=== PATIENT | female | born 1970 | race Caucasian/White ===

== ENCOUNTER → 2025-01-21 | Outpatient (CLI) | payer OTHER, SELFPAY ==
--- NOTE | 2025-01-21 14:29 | BI_ITS ---
EXAM: SCRN MAMM (CAD)W/CHRISTINE BILAT DATE: 01/21/2025 CLINICAL HISTORY: F, Age 54 y/o , SCREENING No family history. TECHNIQUE: SCRN MAMM (CAD)W/CHRISTINE BILAT COMPARISON: Prior exam(s) dated November 21, 2023.. FINDINGS: TISSUE DENSITY: The breasts are extremely dense, which lowers the sensitivity of mammography. Bilateral Breast Mammographic Findings: No significant masses, calcifications or other abnormalities are identified. No suspicious masses, areas of developing architectural distortion, or suspicious calcifications. There has been no significant interval change. BI/SCRN MAMM (CAD)W/CHRISTINE BILAT IMPRESSION: Stable examination. OVERALL FINAL ASSESSMENT BI-RADS 1: NEGATIVE. RECOMMENDATION: Routine annual follow-up in 1 Year A letter with findings and recommendations will be mailed to the patient. Reading Location: [id number]
--- OUTSIDE RECORDS SUMMARY | 2025-01-21 19:59 | XMS RPT_ITS | CCD ---
Author Organization [facility] Team Providers Care Historical Archeologist Name Role Phone GOSIA SWAIN Admitting Unavailable GOSIA SWAIN Attending Unavailable Assessment, Health Risk Attending Unavaila ble Assessment, Health Risk Referring Unavaila ble Luz Marina Puckett Referring Unavailable Italo, Luz Marina Primary Care Unavailable Luz Marina Puckett Attending Unavailable Problems Problem Classification Problem Date Documented Date Episodic/Chronic Other nervous system disorders (1 source) Other acute postprocedural pain; Translations: [Other acute postprocedural pain] Onset: 08-19-2018 Episodic Other screening for suspected conditions (not mental disorders or infectious disease) (1 source) Encounter for screening mammogram for malignant neoplasm of breast; Translations: [Encounter for screening mammogram for malignant neoplasm of breast] Onset: 01-19-2025 Episodic Residual codes; unclassified (1 source) Other specified postprocedural states; Translations: [Other specified postprocedural states] Onset: 08-19-2018 Sprains and strains (1 source) Other sprain of right hip, initial encounter; Translations: [Other sprain of right hip, initial encounter] Onset: 07-30-2018 Episodic Results Test Name Value Interpretation Reference Range Facil ity Mumps Antibody,IgGon 05-30- 024 MUMPS Ab, IgG 10.8 AU/mL Low Immune >10.9 [facility] Comment on above: Result Comment: A se cond sample should be collected and tested no less than 2-4 weeks. Negative <9.0 Equivocal 9.0 - 10.9 Positive >10.9 A positive result generally indicates past exposure to Mumps virus or previous vaccination. Performed By: #### L 3400.1750, L3100.3400, L509.4015 #### [facility] [address] [place], [place], [address] WC EMP Rubeola Titeron 12-2 RUBEOLA Ab, IgG 62.8 AU/mL Normal Immune >16.4 [facility] Comment on above: Result Comment: Nega tive <13.5 Equivocal 13.5 - 16.4 Positive >16.4 Presence of antibodies to Rubeola is presumptive evidence of immunity except when acute infection is suspected. Performed at: [address] [id number] Insurance Risk Surveyor: Raheel Hassan PhD, Phone: [phone] Performed By: #### L 3400.1750, L3100.3400, L509.4014 #### [facility] [address] [place], [place], [id number] Rubella IgG [employer] [employer] 1 07-30-2023 Rubella IgG Equiv Normal Nonreactive [facility] Comment on above: Result Comment: Anti body Results Interpretation of Immune Status Non Reactive Presumed Non-Immune Equivocal Equivocal Reactive Presumed Immune Performed By: #### L 3400.1750, L3100.3400, L509.4015 #### [facility] [address] [place], [place], [id number] Claim Examiner Cytology Reporton 2020 Claim Examiner Cytology Report . Pathology Reports Accession: Collected Date/Time: Received Date/Time: Pathologist: [id number] 04/18/2021 15:26 EST 04/18/2021 18:00 EST DAV REYNOLDS MD Claim Examiner Cytology Report SPECIMEN: Specimen Description: Liquid Prep w/ HPV Specimen: No Source Given Screening or Diagnostic: Screening RELEVANT HISTORY: LMP: not given SPECIMEN ADEQUACY: SATISFACTORY FOR EVALUATION ENDOCERVICAL/TRANSFOR MATIONAL ZONE COMPONENT PRESENT INTERPRETATION/RESULT S: NEGATIVE FOR INTRAEPITHELIAL LESION OR MALIGNANCY SUGGESTIONS/EDUCATION AL NOTES: THIS CASE HAS BEEN REVIEWED FOR 10% Q.C. RESCREEN HIGH RISK HPV TESTING: High Risk HPV Typing: Negative HPV Types 16, 18, 31, 33, 35, 39, 45, 51, 52, 56, 58, 59, 66 and 68 DNA were undetectable or below the pre-set threshold. The shin High-Risk HPV DNA Test is not intended for use as a screening device for Pap normal women under age 30 and is not intended to substitute for regular Pap screening. The shin High-Risk HPV DNA Test is designed to augment existing methods for the detection of cervical disease and should be used in conjunction with clinical information derived from other diagnostic and screening tests, physical examinations and full medical history in accordance with appropriate patient management procedures. NOTE: A negative result does not preclude the presence of HPV infection because results depend on adequate specimen collection, absence of inhibitors and sufficient DNA to be detected. COMMENT: This Pap Test was successfully processed and evaluated with the assistance of the [employer] ThinPrep Test Imaging System. Electronically Signed by Pathology report verified by [facility] Screened by: RUTH DW Electronically signed by DAV REYNOLDS Sign-Out Date: 05/03/2021 14:54 Performing Lab: [facility], [address] [place] [address] Disclaimer The Pap test is a screening test for cervical cancer. As evidenced by published data, it is subject to both inherent false negative and false positive results. Your patient's results should be interpreted in context with pertinent clinical history including gynecological examination. Normal [facility] ([place]) HPVon 04-22-2021 HPV Interp Normal See Interp HPVN [facility] ([place]) Comment on above: Order Comment: Order placed by AP_HPV_ORDER rule from [id number] Result Comment: High Risk HPV Typing: NEGATIVE HPV types 16, 18, 31, 33, 35, 39, 45, 51, 52, 56, 58, 59, 66 and 68 DNA were undetectable or below the pre-set threshold. The shin High-Risk HPV DNA Test is not intended for use as a screening device for Pap normal women under age 30 and is not intended to substitute for regular Pap screening. The shin High-Risk HPV DNA Test is designed to augment existing methods for the detection of cervical disease and should be used in conjunction with clinical information derived from other diagnostic and screening tests, physical examinations and full medical history in accordance with appropriate patient management procedures. NOTE: A negative result does not preclude the presence of HPV infection because results depend on adequate specimen collection, absence of inhibitors and sufficient DNA to be detected. See Interp HPVN Performed By: #### T SH, CMP, GFR, CBC, ADIFF, ANEU, LIPID #### [facility] [address] [place] [id number] HPV Source Cervix Normal [facility] ([place]) Comment on above: Order Comment: Order placed by AP_HPV_ORDER rule from [id number] Performed By: #### T SH, CMP, GFR, CBC, ADIFF, ANEU, LIPID #### [facility] [address] [place] [address] [facility] 03-21-2021 CHOL/HDL RATIO 3.8 mg/dl Normal 3.7-5.6 [facility] Comment on above: Performed By: #### L G #### [facility] [address] [place] [address] Cholesterol [Mass/Vol] 201 mg/dL High 0-200 [facility] Comment on above: Performed By: #### L G #### [facility] [address] [place] [address] Cholesterol in HDL [Mass/Vol] 54 mg/dL Normal 40-60 [facility] Comment on above: Performed By: #### L G #### [facility] [address] [place] [address] Cholesterol in LDL [Mass/Vol] 124 mg/dL Normal 0-130 [facility] Comment on above: Performed By: #### L G #### [facility] [address] [place] [address] Glucose [Mass/Vol] 86 mg/dL Normal 70-100 [facility] Comment on above: Performed By: #### L G #### [facility] [address] [place] [address] Triglyceride [Mass/Vol] 116 mg/dL Normal 0-150 [facility] Comment on above: Performed By: #### L G #### [facility] [address] [place] [address] VLDL CALCULATION 23 mg/dl Normal 5-40 [facility] Comment on above: Performed By: #### L G #### [facility] [address] [place] [address] SCREENING CHRISTINE-BILATon 03-21 SCREENING CHRISTINE-BILAT DEMETRICE ANDERSON Female [id number] Ordering physician: Lorrie Gunter LOC:MAMMO [id number] Attending physician: Lorrie Gunter 1970 [id number] DOS: 03/18/21 Acc#: [id number] Exam/Proc: SCREENING CHRISTINE-BILAT Dept: MAMMO EXAMINATION: SCREENING DIGITAL BILATERAL MAMMOGRAM WITH TOMOSYNTHESIS 03/18/2021 1:30 pm COMPARISON: April 07, 2019 mammogram HISTORY: Screening. TECHNIQUE: Screening mammography of the bilateral breasts was performed with tomosynthesis. 2D standard and 3D tomosynthesis combination imaging performed through both breasts in the MLO and CC projection. Computer aided detection was utilized in the interpretation of this exam. Current study was also evaluated with a Computer Aided Detection (CAD) system. FINDINGS: BREAST DENSITY: Scattered fibroglandular tissue No gross abnormality demonstrated IMPRESSION: Negative exam BIRADS: MAMMOGRAM BI-RADS: 1: Negative RECALL: 1 year screening RECALL TYPE: mammo LETTER SENT: Normal BI-RADS 1 and 2 Electronically signed By Gabe Durham DO 03/21/2021 1:47:40 PM EST Workstation ID : [id number] CLINICAL: Routine screening. Lapping Machine Operator: Katie DENG(Kvng)(M) letter sent: Normal BI-RADS 1 and 2 Mammogram BI-RADS: 1 Negative REPORT SIGNATURE ON FILE Electronically Signed Date/Time: 03/21/21 1347 Dictated Date/time: 03/21/21 1346 CC: Normal [facility] .GFRon 03-11-2021 GFR >60 Normal [facility] ([place]) Comment on above: Result Comment: GFR Population mean for , Non- Americans Ages 20-29 = 116 mL/min/1.73 sq.m. Ages 30-39 = 107 mL/min/1.73 sq.m. Ages 40-49 = 99 mL/min/1.73 sq.m. Ages 50-59 = 93 mL/min/1.73 sq.m. Ages 60-69 = 85 mL/min/1.73 sq.m. Ages 70+ = 75 mL/min/1.73 sq.m. Chronic Kidney Disease: Less than 60 mL/min/1.73 square meters End Stage Renal Disease: Less than 15 mL/min/1.73 square meters Performed By: #### T SH, CMP, GFR, CBC, ADIFF, ANEU, LIPID #### [address] [address] GFR Non- >60 Normal [facility] ([place]) Comment on above: Result Comment: GFR Population mean for , Non- Americans Ages 20-29 = 116 mL/min/1.73 sq.m. Ages 30-39 = 107 mL/min/1.73 sq.m. Ages 40-49 = 99 mL/min/1.73 sq.m. Ages 50-59 = 93 mL/min/1.73 sq.m. Ages 60-69 = 85 mL/min/1.73 sq.m. Ages 70+ = 75 mL/min/1.73 sq.m. Chronic Kidney Disease: Less than 60 mL/min/1.73 square meters End Stage Renal Disease: Less than 15 mL/min/1.73 square meters Performed By: #### T SH, CMP, GFR, CBC, ADIFF, ANEU, LIPID #### [address] [address] CMPon 03-11-2021 Albumin Level 3.8 G/dL Normal 3.2-4.8 [facility] ([place]) Comment on above: Performed By: #### T SH, CMP, GFR, CBC, ADIFF, ANEU, LIPID #### [address] [address] Albumin/Globulin [Mass ratio] 1.5 {ratio} Normal 0.9-1.6 [facility] ([place]) Comment on above: Performed By: #### T SH, CMP, GFR, CBC, ADIFF, ANEU, LIPID #### [address] [address] ALP [Catalytic activity/Vol] 65 U/L Normal 38-126 [facility] ([place]) Comment on above: Performed By: #### T SH, CMP, GFR, CBC, ADIFF, ANEU, LIPID #### [address] [address] ALT [Catalytic activity/Vol] 17 U/L Normal 10-49 [facility] ([place]) Comment on above: Performed By: #### T SH, CMP, GFR, CBC, ADIFF, ANEU, LIPID #### [address] [address] AST [Catalytic activity/Vol] 16 U/L Normal 8-34 [facility] ([place]) Comment on above: Performed By: #### T SH, CMP, GFR, CBC, ADIFF, ANEU, LIPID #### [address] [address] Bili Total 0.20 mg/dL Normal 0.20-1.20 [facility] ([place]) Comment on above: Result Comment: Use of this assay is not recommended for patients undergoing treatment with eltrombopag due to the potential for falsely elevated results. Performed By: #### T SH, CMP, GFR, CBC, ADIFF, ANEU, LIPID #### [address] [address] BUN/Creatinine Ratio 18.6 ratio Normal 10.0-22.0 [facility] ([place]) Comment on above: Performed By: #### T SH, CMP, GFR, CBC, ADIFF, ANEU, LIPID #### [address] [address] Calcium [Mass/Vol] 9.2 mg/dL Normal 8.7-10.4 [facility] ([place]) Comment on above: Result Comment: No te - New Reference Range in effect 19 Performed By: #### T SH, CMP, GFR, CBC, ADIFF, ANEU, LIPID #### [address] [address] Chloride [Moles/Vol] 105 mmol/L Normal 98-110 [facility] ([place]) Comment on above: Performed By: #### T SH, CMP, GFR, CBC, ADIFF, ANEU, LIPID #### [address] [address] CO2 [Moles/Vol] 29 mmol/L Normal 22-32 [facility] ([place]) Comment on above: Performed By: #### T SH, CMP, GFR, CBC, ADIFF, ANEU, LIPID #### [address] [address] Creatinine [Mass/Vol] 0.70 mg/dL Normal 0.50-1.20 [facility] ([place]) Comment on above: Performed By: #### T SH, CMP, GFR, CBC, ADIFF, ANEU, LIPID #### [place] [id number] Electrolyte Balance 6.0 mEq/L Normal 4.0-15.0 [facility] ([place]) Comment on above: Performed By: #### T SH, CMP, GFR, CBC, ADIFF, ANEU, LIPID #### [address] [address] Globulin 2.6 G/dL Normal 1.5-3.8 [facility] ([place]) Comment on above: Performed By: #### T SH, CMP, GFR, CBC, ADIFF, ANEU, LIPID #### [place] [phone] Glucose [Mass/Vol] 98 mg/dL Normal 70-110 [facility] ([place]) Comment on above: Performed By: #### T SH, CMP, GFR, CBC, ADIFF, ANEU, LIPID #### [place] [phone] Potassium [Moles/Vol] 4.1 mmol/L Normal 3.5-5.0 [facility] ([place]) Comment on above: Result Comment: Spec imen slightly hemolyzed. Performed By: #### T SH, CMP, GFR, CBC, ADIFF, ANEU, LIPID #### [address] [address] Sodium [Moles/Vol] 140 mmol/L Normal 136-145 [facility] ([place]) Comment on above: Performed By: #### T SH, CMP, GFR, CBC, ADIFF, ANEU, LIPID #### [place] [phone] Total Protein 6.4 G/dL Normal 5.7-8.2 [facility] ([place]) Comment on above: Result Comment: No te - New Reference Range in effect 19 Performed By: #### T SH, CMP, GFR, CBC, ADIFF, ANEU, LIPID #### [address] [address] Urea nitrogen [Mass/Vol] 13.0 mg/dL Normal 8.0-22.0 [facility] ([place]) Comment on above: Performed By: #### T SH, CMP, GFR, CBC, ADIFF, ANEU, LIPID #### [address] [address] Nino 03-11-2021 Ferritin [Mass/Vol] 18.7 ng/mL Normal 8.0-252.0 [facility] ([place]) Comment on above: Performed By: #### T SH, CMP, GFR, CBC, ADIFF, ANEU, LIPID #### [address] [address] LIPIDon 03-11-2021 Cholesterol [Mass/Vol] 182 mg/dL Normal 50-199 [facility] ([place]) Comment on above: Result Comment: Chol esterol Reference Interval: Less than 200 Desirable 200-239 Borderline high risk 240 and above High risk Performed By: #### T SH, CMP, GFR, CBC, ADIFF, ANEU, LIPID #### [address] [address] Cholesterol in HDL [Mass/Vol] 50 mg/dL Normal 40-59 [facility] ([place]) Comment on above: Performed By: #### T SH, CMP, GFR, CBC, ADIFF, ANEU, LIPID #### [address] [address] Cholesterol in LDL [Mass/Vol] 111 mg/dL Normal 0-129 [facility] ([place]) Comment on above: Performed By: #### T SH, CMP, GFR, CBC, ADIFF, ANEU, LIPID #### [address] [address] Triglyceride [Mass/Vol] 104 mg/dL Normal 3-149 [facility] ([place]) Comment on above: Performed By: #### T SH, CMP, GFR, CBC, ADIFF, ANEU, LIPID #### [address] [address] TSHon 03-11-2021 TSH 3.663 mIU/mL Normal 0.550-4.780 [facility] ([place]) Comment on above: Result Comment: No te - New Reference Range in effect 19 Performed By: #### T SH, CMP, GFR, CBC, ADIFF, ANEU, LIPID #### [address] [address] .Auto Diffon 03-10-2021 Basophil, Absolute 0.10 10 3/mcL Normal 0.00-0.27 [facility] ([place]) Comment on above: Performed By: #### C BC, ADIFF, ANEU, FERR, TSH, CMP, GFR, LIPID #### [place] [address] Basophils/100 WBC (Bld) 0.5 % Normal 0.0-2.5 [facility] ([place]) Comment on above: Performed By: #### C BC, ADIFF, ANEU, FERR, TSH, CMP, GFR, LIPID #### [address] [address] Eosinophil, Absolute 0.30 10 3/mcL Normal 0.00-0.65 [facility] ([place]) Comment on above: Performed By: #### C BC, ADIFF, ANEU, FERR, TSH, CMP, GFR, LIPID #### [address] [address] Eosinophils/100 WBC (Bld) 2.4 % Normal 0.0-6.0 [facility] ([place]) Comment on above: Performed By: #### C BC, ADIFF, ANEU, FERR, TSH, CMP, GFR, LIPID #### [place] [phone] Lymphocyte, Absolute 3.50 10 3/mcL Normal 0.90-4.32 [facility] ([place]) Comment on above: Performed By: #### C BC, ADIFF, ANEU, FERR, TSH, CMP, GFR, LIPID #### [address] [address] Lymphocytes/100 WBC (Bld) 32.2 % Normal 20.0-40.0 [facility] ([place]) Comment on above: Performed By: #### C BC, ADIFF, ANEU, FERR, TSH, CMP, GFR, LIPID #### [address] [address] Monocyte, Absolute 1.00 10 3/mcL Normal 0.09-1.40 [facility] ([place]) Comment on above: Performed By: #### C BC, ADIFF, ANEU, FERR, TSH, CMP, GFR, LIPID #### [address] [address] Monocytes/100 WBC (Bld) 8.8 % Normal 2.0-13.0 [facility] ([place]) Comment on above: Performed By: #### C BC, ADIFF, ANEU, FERR, TSH, CMP, GFR, LIPID #### [address] [address] Neutrophils/100 WBC (Bld) 56.1 % Normal 50.0-75.0 [facility] ([place]) Comment on above: Performed By: #### C BC, ADIFF, ANEU, FERR, TSH, CMP, GFR, LIPID #### [address] [address] .NEUABSon 03-10-2021 Neutrophil, Absolute 6.10 10 3/mcL Normal 2.25-8.10 [facility] ([place]) Comment on above: Performed By: #### C BC, ADIFF, ANEU, FERR, TSH, CMP, GFR, LIPID #### [address] [address] CBCon 03-10-2021 Erythrocyte distribution width (RBC) [Ratio] 14.2 % Normal 11.5-15.5 [facility] ([place]) Comment on above: Performed By: #### C BC, ADIFF, ANEU, FERR, TSH, CMP, GFR, LIPID #### [place] [address] Hematocrit (Bld) [Volume fraction] 38.6 % Normal 34.0-46.0 [facility] ([place]) Comment on above: Performed By: #### C BC, ADIFF, ANEU, FERR, TSH, CMP, GFR, LIPID #### [place] [phone] Hgb 12.9 G/dL Normal 12.0-16.0 [facility] ([place]) Comment on above: Performed By: #### C BC, ADIFF, ANEU, FERR, TSH, CMP, GFR, LIPID #### [place] [address] MCH (RBC) [Entitic mass] 28.8 pg Normal 27.0-33.0 [facility] ([place]) Comment on above: Performed By: #### C BC, ADIFF, ANEU, FERR, TSH, CMP, GFR, LIPID #### [place] [address] MCHC 33.4 G/dL Normal 32.0-36.0 [facility] ([place]) Comment on above: Performed By: #### C BC, ADIFF, ANEU, FERR, TSH, CMP, GFR, LIPID #### [place] [address] MCV (RBC) [Entitic vol] 86.1 fL Normal 80.0-99.0 [facility] ([place]) Comment on above: Performed By: #### C BC, ADIFF, ANEU, FERR, TSH, CMP, GFR, LIPID #### [place] [address] Platelet 278 10 3/mcL Normal 150-450 [facility] ([place]) Comment on above: Performed By: #### C BC, ADIFF, ANEU, FERR, TSH, CMP, GFR, LIPID #### [place] [address] Platelet mean volume (Bld) [Entitic vol] 10.1 fL Normal 6.6-10.5 [facility] ([place]) Comment on above: Performed By: #### C BC, ADIFF, ANEU, FERR, TSH, CMP, GFR, LIPID #### [address] [address] RBC 4.49 10 6/mcL Normal 4.10-5.30 [facility] ([place]) Comment on above: Performed By: #### C BC, ADIFF, ANEU, FERR, TSH, CMP, GFR, LIPID #### [address] [address] WBC 10.80 10 3/mcL Normal 4.50-10.80 [facility] ([place]) Comment on above: Performed By: #### C BC, ADIFF, ANEU, FERR, TSH, CMP, GFR, LIPID #### [address] [address] .Auto Diffon 08-18-2020 Basophil, Absolute 0.10 10 3/mcL Normal 0.00-0.27 [facility] ([place]) Comment on above: Performed By: #### T SH, CMP, GFR, CBC, ADIFF, ANEU, LIPID #### [place] [address] Basophils/100 WBC (Bld) 1.0 % Normal 0.0-2.5 [facility] ([place]) Comment on above: Performed By: #### T SH, CMP, GFR, CBC, ADIFF, ANEU, LIPID #### [address] [address] Eosinophil, Absolute 0.30 10 3/mcL Normal 0.00-0.65 [facility] ([place]) Comment on above: Performed By: #### T SH, CMP, GFR, CBC, ADIFF, ANEU, LIPID #### [address] [address] Eosinophils/100 WBC (Bld) 4.2 % Normal 0.0-6.0 [facility] ([place]) Comment on above: Performed By: #### T SH, CMP, GFR, CBC, ADIFF, ANEU, LIPID #### [place] [phone] Lymphocyte, Absolute 2.50 10 3/mcL Normal 0.90-4.32 [facility] ([place]) Comment on above: Performed By: #### T SH, CMP, GFR, CBC, ADIFF, ANEU, LIPID #### [address] [address] Lymphocytes/100 WBC (Bld) 34.2 % Normal 20.0-40.0 [facility] ([place]) Comment on above: Performed By: #### T SH, CMP, GFR, CBC, ADIFF, ANEU, LIPID #### [address] [address] Monocyte, Absolute 0.60 10 3/mcL Normal 0.09-1.40 [facility] ([place]) Comment on above: Performed By: #### T SH, CMP, GFR, CBC, ADIFF, ANEU, LIPID #### [address] [address] Monocytes/100 WBC (Bld) 7.6 % Normal 2.0-13.0 [facility] ([place]) Comment on above: Performed By: #### T SH, CMP, GFR, CBC, ADIFF, ANEU, LIPID #### [address] [address] Neutrophils/100 WBC (Bld) 53.0 % Normal 50.0-75.0 [facility] ([place]) Comment on above: Performed By: #### T SH, CMP, GFR, CBC, ADIFF, ANEU, LIPID #### [address] [address] .GFRon 08-18-2020 GFR >60 Normal [facility] ([place]) Comment on above: Result Comment: GFR Population mean for , Non- Americans Ages 20-29 = 116 mL/min/1.73 sq.m. Ages 30-39 = 107 mL/min/1.73 sq.m. Ages 40-49 = 99 mL/min/1.73 sq.m. Ages 50-59 = 93 mL/min/1.73 sq.m. Ages 60-69 = 85 mL/min/1.73 sq.m. Ages 70+ = 75 mL/min/1.73 sq.m. Chronic Kidney Disease: Less than 60 mL/min/1.73 square meters End Stage Renal Disease: Less than 15 mL/min/1.73 square meters Performed By: #### T SH, CMP, GFR, CBC, ADIFF, ANEU, LIPID #### [address] [address] GFR Non- >60 Normal [facility] ([place]) Comment on above: Result Comment: GFR Population mean for , Non- Americans Ages 20-29 = 116 mL/min/1.73 sq.m. Ages 30-39 = 107 mL/min/1.73 sq.m. Ages 40-49 = 99 mL/min/1.73 sq.m. Ages 50-59 = 93 mL/min/1.73 sq.m. Ages 60-69 = 85 mL/min/1.73 sq.m. Ages 70+ = 75 mL/min/1.73 sq.m. Chronic Kidney Disease: Less than 60 mL/min/1.73 square meters End Stage Renal Disease: Less than 15 mL/min/1.73 square meters Performed By: #### T SH, CMP, GFR, CBC, ADIFF, ANEU, LIPID #### [place] [id number] .NEUABSon 08-18-2020 Neutrophil, Absolute 3.80 10 3/mcL Normal 2.25-8.10 [facility] ([place]) Comment on above: Performed By: #### T SH, CMP, GFR, CBC, ADIFF, ANEU, LIPID #### [place] [phone] CBCon 08-18-2020 Erythrocyte distribution width (RBC) [Ratio] 13.7 % Normal 11.5-15.5 [facility] ([place]) Comment on above: Performed By: #### T SH, CMP, GFR, CBC, ADIFF, ANEU, LIPID #### [address] [address] Hematocrit (Bld) [Volume fraction] 41.1 % Normal 34.0-46.0 [facility] ([place]) Comment on above: Performed By: #### T SH, CMP, GFR, CBC, ADIFF, ANEU, LIPID #### [address] [address] Hgb 13.6 G/dL Normal 12.0-16.0 [facility] ([place]) Comment on above: Performed By: #### T SH, CMP, GFR, CBC, ADIFF, ANEU, LIPID #### [place] [address] MCH (RBC) [Entitic mass] 28.8 pg Normal 27.0-33.0 [facility] ([place]) Comment on above: Performed By: #### T SH, CMP, GFR, CBC, ADIFF, ANEU, LIPID #### [place] [address] MCHC 33.1 G/dL Normal 32.0-36.0 [facility] ([place]) Comment on above: Performed By: #### T SH, CMP, GFR, CBC, ADIFF, ANEU, LIPID #### [place] [address] MCV (RBC) [Entitic vol] 87.0 fL Normal 80.0-99.0 [facility] ([place]) Comment on above: Performed By: #### T SH, CMP, GFR, CBC, ADIFF, ANEU, LIPID #### [place] [address] Platelet 303 10 3/mcL Normal 150-450 [facility] ([place]) Comment on above: Performed By: #### T SH, CMP, GFR, CBC, ADIFF, ANEU, LIPID #### [place] [address] Platelet mean volume (Bld) [Entitic vol] 10.1 fL Normal 6.6-10.5 [facility] ([place]) Comment on above: Performed By: #### T SH, CMP, GFR, CBC, ADIFF, ANEU, LIPID #### [place] [address] RBC 4.72 10 6/mcL Normal 4.10-5.30 [facility] [facility] ([place]) Comment on above: Performed By: #### T SH, CMP, GFR, CBC, ADIFF, ANEU, LIPID #### [place] [address] WBC 7.20 10 3/mcL Normal 4.50-10.80 [facility] ([place]) Comment on above: Performed By: #### T SH, CMP, GFR, CBC, ADIFF, ANEU, LIPID #### [place] [id number] CMPon 08-18-2020 Albumin Level 3.8 G/dL Normal 3.2-4.8 [facility] ([place]) Comment on above: Performed By: #### T SH, CMP, GFR, CBC, ADIFF, ANEU, LIPID #### [place] [address] Albumin/Globulin [Mass ratio] 1.4 {ratio} Normal 0.9-1.6 [facility] ([place]) Comment on above: Performed By: #### T SH, CMP, GFR, CBC, ADIFF, ANEU, LIPID #### [place] [address] ALP [Catalytic activity/Vol] 56 U/L Normal 38-126 [facility] ([place]) Comment on above: Performed By: #### T SH, CMP, GFR, CBC, ADIFF, ANEU, LIPID #### [place] [address] ALT [Catalytic activity/Vol] 20 U/L Normal 10-49 [facility] ([place]) Comment on above: Performed By: #### T SH, CMP, GFR, CBC, ADIFF, ANEU, LIPID #### [place] [id number] AST [Catalytic activity/Vol] 17 U/L Normal 8-34 [facility] ([place]) Comment on above: Performed By: #### T SH, CMP, GFR, CBC, ADIFF, ANEU, LIPID #### [place] [address] Bili Total 0.40 mg/dL Normal 0.20-1.20 [facility] ([place]) Comment on above: Result Comment: Use of this assay is not recommended for patients undergoing treatment with eltrombopag due to the potential for falsely elevated results. Performed By: #### T SH, CMP, GFR, CBC, ADIFF, ANEU, LIPID #### [facility] [address] [place], [place] [address] BUN/Creatinine Ratio 17.1 ratio Normal 10.0-22.0 [facility] ([place]) Comment on above: Performed By: #### T SH, CMP, GFR, CBC, ADIFF, ANEU, LIPID #### [address] [address] Calcium [Mass/Vol] 9.4 mg/dL Normal 8.7-10.4 [facility] ([place]) Comment on above: Result Comment: No te - New Reference Range in effect 19 Performed By: #### T SH, CMP, GFR, CBC, ADIFF, ANEU, LIPID #### [address] [address] Chloride [Moles/Vol] 105 mmol/L Normal 98-110 [facility] ([place]) Comment on above: Performed By: #### T SH, CMP, GFR, CBC, ADIFF, ANEU, LIPID #### [address] [address] CO2 [Moles/Vol] 29 mmol/L Normal 22-32 [facility] ([place]) Comment on above: Performed By: #### T SH, CMP, GFR, CBC, ADIFF, ANEU, LIPID #### [address] [address] Creatinine [Mass/Vol] 0.76 mg/dL Normal 0.50-1.20 [facility] ([place]) Comment on above: Performed By: #### T SH, CMP, GFR, CBC, ADIFF, ANEU, LIPID #### [address] [address] Electrolyte Balance 5.0 mEq/L Normal 4.0-15.0 [facility] ([place]) Comment on above: Performed By: #### T SH, CMP, GFR, CBC, ADIFF, ANEU, LIPID #### [address] [address] Globulin 2.7 G/dL Normal 1.5-3.8 [facility] ([place]) Comment on above: Performed By: #### T SH, CMP, GFR, CBC, ADIFF, ANEU, LIPID #### [address] [address] Glucose [Mass/Vol] 87 mg/dL Normal 70-110 [facility] ([place]) Comment on above: Performed By: #### T SH, CMP, GFR, CBC, ADIFF, ANEU, LIPID #### [address] [address] Potassium [Moles/Vol] 4.5 mmol/L Normal 3.5-5.0 [facility] ([place]) Comment on above: Performed By: #### T SH, CMP, GFR, CBC, ADIFF, ANEU, LIPID #### [address] [address] Sodium [Moles/Vol] 139 mmol/L Normal 136-145 [facility] ([place]) Comment on above: Performed By: #### T SH, CMP, GFR, CBC, ADIFF, ANEU, LIPID #### [address] [address] Total Protein 6.5 G/dL Normal 5.7-8.2 [facility] ([place]) Comment on above: Result Comment: No te - New Reference Range in effect 19 Performed By: #### T SH, CMP, GFR, CBC, ADIFF, ANEU, LIPID #### [address] [address] Urea nitrogen [Mass/Vol] 13.0 mg/dL Normal 8.0-22.0 [facility] ([place]) Comment on above: Performed By: #### T SH, CMP, GFR, CBC, ADIFF, ANEU, LIPID #### [address] [address] LIPIDon 08-18-2020 Cholesterol [Mass/Vol] 227 mg/dL High 50-199 [facility] ([place]) Comment on above: Result Comment: Chol esterol Reference Interval: Less than 200 Desirable 200-239 Borderline high risk 240 and above High risk Performed By: #### T SH, CMP, GFR, CBC, ADIFF, ANEU, LIPID #### [address] [address] Cholesterol in HDL [Mass/Vol] 54 mg/dL Normal 40-59 [facility] ([place]) Comment on above: Performed By: #### T SH, CMP, GFR, CBC, ADIFF, ANEU, LIPID #### [address] [address] Cholesterol in LDL [Mass/Vol] 155 mg/dL High 0-129 [facility] ([place]) Comment on above: Performed By: #### T SH, CMP, GFR, CBC, ADIFF, ANEU, LIPID #### [address] [address] Triglyceride [Mass/Vol] 92 mg/dL Normal 3-149 [facility] ([place]) Comment on above: Performed By: #### T SH, CMP, GFR, CBC, ADIFF, ANEU, LIPID #### [place] [id number] TSHon 08-18-2020 TSH 1.101 mIU/mL Normal 0.550-4.780 [facility] ([place]) Comment on above: Result Comment: No te - New Reference Range in effect 19 Performed By: #### T SH, CMP, GFR, CBC, ADIFF, ANEU, LIPID #### [place] [id number] CNOVon 11-26-2018 CNOV Office Visit (SPHTB) DEMETRICE ANDERSON ([id number]) 1970 F Date Time Provider Department 11/26/18 9:15 AM GOSIA SWAIN SPHTB During your visit today, we recorded the following information about you: Gosia Swain MD 11/26/2018 11:58 AM Signed DEPARTMENT OF ORTHOPAEDICS November 26, 2018 CC: postop right hip HPI: 3 months postop right hip doing well. Has resolved her flareups. Overall improved from preoperative status. Progressing rehabilitation. No interim traumatic injury. PAIN EVALUATION No data found. Past Medical History: PAST MEDICAL HISTORY Diagnosis Date - Acetabular labrum tear 06/2018 RIGHT HIP - Hypothyroid Family History: FAMILY HISTORY Problem Relation Age of Onset - Anesthesia Problems No Family History - Blood Clots No Family History - Early No Family History Social History: Medications: acetaminophen (TYLENOL) 325 mg cap Take by mouth. levothyroxine (SYNTHROID) 112 mcg tablet Take 112 mcg by mouth daily before breakfast. liothyronine (CYTOMEL) 5 mcg tablet Take 5 mcg by mouth once daily. amitriptyline (ELAVIL) 10 mg tablet Take 10 mg by mouth daily at bedtime. Allergies: ALLERGIES No Known Allergies Physical Exam: Musculoskeletal Exam: Gait normal, Posture: erect and normal. Exam: Right Left Single Leg Trendelenburg Negative Negative Hip flexion 110 110 IR 10 30 ER 60 60 Anterior impingement negative negative Dynamic labral stress negative negative JONNA negative negative Posterior Impingement negative negative TRESA negative negative Strength Right Left Supine HF 5/5 5/5 Upright HF 5/5 5/5 Adduction 5/5 5/5 Abduction 5/5 5/5 Tenderness with Palpation: Right Left Greater Troch Positive Negative Gluteus Medius Negative Negative Piriformis Negative Negative Review of Systems: GENERAL: No weight loss, malaise or fevers MUSCULOSKELETAL: See HPI Imaging: Assessment/Plan: 3 months postop right hip doing well Plan discussed and expectations reviewed. Proceed forward with reoperative protocol. Follow-up in 3 months. All questions answered. Gosia Swain MD This note was partially generated using [employer] voice recognition system, and there may be some incorrect words, spellings, and punctuation that were not noted in checking the note before saving. Referring Provider: SHERINE BRAUN [[id number]] Allergies As of Date: 11/26/2018 (No Known Allergies) Date Reviewed: 11/26/2018 Reviewed by: Vanita Gonsalez Ma - Fully Assessed Reason for Visit: Post Op [174] Cmt: right hip surgery on 08/19/2018 Primary Visit Diagnosis:Acetabular labrum tear, right, subsequent encounter [S73.191D] Prescriptions as of 11/26/2018 Sig: ACETAMINOPHEN 325 MG CAPSULE Take by mouth. LEVOTHYROXINE 112 MCG TABLET Take 112 mcg by mouth daily b* LIOTHYRONINE 5 MCG TABLET Take 5 mcg by mouth once seema* AMITRIPTYLINE 10 MG TABLET Take 10 mg by mouth daily at * Problem List As Of Date 11/26/2018 Noted Resolved Acetabular labrum tear, right, initial encounte*INVALID FOR* Acquired hypothyroidism [E03.9] INVALID FOR* More... Hx of migraine headaches [Z86.69] INVALID FOR* More... Medications Discontinued During This Encounter methocarbamol (ROBAXIN) 500 mg tablet 21 t* 0 10/22/2018 11/26/2018 Route: ORAL Sig: Take 1 tablet by mouth three times daily. Disc: Course of therapy completed aspirin, enteric coated (ADULT LOW D* 21 t* 0 08/19/2018 11/26/2018 Class: Print RX Route: ORAL Sig: Take 1 tablet by mouth daily with breakfast for 21 days. Start the day after last dose of ketorolac Disc: Course of therapy completed ondansetron orally disintegrating (Z* 12 t* 0 08/19/2018 11/26/2018 Class: Print RX Route: ORAL Sig: Take 1 tablet by mouth every 8 hours as needed for Nausea/Vomiting. Patient not taking: Reported on 09/03/2018 Disc: Course of therapy completed acetaminophen (TYLENOL) 500 mg tablet 40 t* 0 08/19/2018 11/26/2018 Class: Print RX Si tablet every 4 to 6 hours as needed for pain Disc: Course of therapy completed topiramate (TOPAMAX) 50 mg tablet 11/26/2018 Class: Historical Med Route: ORAL Sig: Take 50 mg by mouth once daily. Disc: Course of therapy completed Disposition: Return in about 3 months (around 02/26/2019). Follow-up and Disposition History Recorded Encounter Status:Closed by GOSIA SWAIN MD on 11/26/[address] [facility] PROGRESSon 11-26-2018 PROGRESS HNO ID: [id number] Author: Gosia Swain Service: ? Author Type: Physician Type: Progress Notes Filed: 11/26/2018 11:58 AM Note Text: DEPARTMENT OF ORTHOPAEDICS November 26, 2018 CC: postop right hip HPI: 3 months postop right hip doing well. Has resolved her flareups. Overall improved from preoperative status. Progressing rehabilitation. No interim traumatic injury. PAIN EVALUATION No data found. Past Medical History: PAST MEDICAL HISTORY Diagnosis Date - Acetabular labrum tear 06/2018 RIGHT HIP - Hypothyroid Family History: FAMILY HISTORY Problem Relation Age of Onset - Anesthesia Problems No Family History - Blood Clots No Family History - Early No Family History Social History: Medications: acetaminophen (TYLENOL) 325 mg cap Take by mouth. levothyroxine (SYNTHROID) 112 mcg tablet Take 112 mcg by mouth daily before breakfast. liothyronine (CYTOMEL) 5 mcg tablet Take 5 mcg by mouth once daily. amitriptyline (ELAVIL) 10 mg tablet Take 10 mg by mouth daily at bedtime. Allergies: ALLERGIES No Known Allergies Physical Exam: Musculoskeletal Exam: Gait normal, Posture: erect and normal. Exam: Right Left Single Leg Trendelenburg Negative Negative Hip flexion 110 110 IR 10 30 ER 60 60 Anterior impingement negative negative Dynamic labral stress negative negative JONNA negative negative Posterior Impingement negative negative TRESA negative negative Strength Right Left Supine HF 5/5 5/5 Upright HF 5/5 5/5 Adduction 5/5 5/5 Abduction 5/5 5/5 Tenderness with Palpation: Right Left Greater Troch Positive Negative Gluteus Medius Negative Negative Piriformis Negative Negative Review of Systems: GENERAL: No weight loss, malaise or fevers MUSCULOSKELETAL: See HPI Imaging: Assessment/Plan: 3 months postop right hip doing well Plan discussed and expectations reviewed. Proceed forward with reoperative protocol. Follow-up in 3 months. All questions answered. Gosia Swain MD This note was partially generated using [employer] voice recognition system, and there may be some incorrect words, spellings, and punctuation that were not noted in checking the note before saving. Normal [facility] CNOVon 10-01-2018 CNOV Office Visit (SPHTB) DEMETRICE ANDERSON ([id number]) 1970 F Date Time Provider Department 10/01/18 9:20 AM CHELSEA ARORA) SPHTB During your visit today, we recorded the following information about you: Chelsea Arora PA-C 10/01/2018 9:30 AM Signed Post Op Follow Up Visit Demetrice Anderson follows up today 6 weeks s/p right hip arthroscopy Has been doing well since surgery. Reports no systemic symptoms or other concerns. PT is going well. PAIN EVALUATION 10/01/2018 Pain Level: 3 Pain Location: Hip-Right Description: Aching;Sore;Dull Duration Units: Months Frequency: Intermittent Intervention: Medication;Reposition ;Relaxation Focused Musculoskeletal exam: Incisions well healed Intact sensation distribution of the lateral femoral cutaneous nerve Trendelenburg Negative right, Negative left Right Left Hip Flex 110 degrees 110 degrees IR 30 degrees 10 degrees ER 60 degrees 60 degrees JONNA Positive motion Negative Anterior Impingement: Negative Negative Posterior Impingement: Negative Negative TRESA Negative Negative Tenderness with Palpation: Right Left Greater Troch Positive Mild Gluteus Medius Negative Negative Piriformis Negative Negative Resisted Strength out of 5 Right Left Hip ADduction 5 5 Hip ABduction 4+ 5 SLR 5 5 Isolated Iliopsoas 5 5 Impression: 6 weeks s/p right hip arthroscopy, Plan: Discussed Advance PT and activities per protocol. Precautions reinforced. Avoid walking for exercise Pool exercise as tolerated avoid - breast stroke, scissor kick, treading water JONNA and Jesus Stretch Bike and elliptical for cardio - gradual progression Follow-up: [address] Alma Arora, MS, PALenora Arora PA-C 10/01/2018 9:27 AM Addendum Avoid walking for exercise Pool exercise as tolerated - walking, gentle freestyle, deep water jog with belt. Avoid - breast stroke, scissor kick, treading water Begin JONNA/ Figure 4 stretch 10 - 30 count hold 3 reps 2-3 sets per day - can start with right heel resting next to or below left knee and progress to right heel resting above leftknee per tolerance Jesus stretch off edge or end of bed - 30 count hold 3 reps 2-3 sets per day Left knee to chest Begin Bike and elliptical for cardio - gradual progression - per PT guidance Referring Provider: SHERINE BARUN [[id number]] Allergies As of Date: 10/01/2018 (No Known Allergies) Date Reviewed: 10/01/2018 Reviewed by: Mike Jennings Ma - Fully Assessed Reason for Visit: Post-Op Visit [1236] Cmt: Right hip post op visit. Pain is a 3 out of ten. Intermittently. Primary Visit Diagnosis:Acetabular labrum tear, right, initial encounter [S73.191A] Prescriptions as of 10/01/2018 Sig: ACETAMINOPHEN 500 MG TABLET 1 tablet every 4 to 6 hours a* ACETAMINOPHEN 325 MG CAPSULE Take by mouth. LEVOTHYROXINE 112 MCG TABLET Take 112 mcg by mouth daily b* LIOTHYRONINE 5 MCG TABLET Take 5 mcg by mouth once seema* TOPIRAMATE 50 MG TABLET Take 50 mg by mouth once seema* AMITRIPTYLINE 10 MG TABLET Take 10 mg by mouth daily at * ASPIRIN 81 MG TABLET,DELAYED * Take 1 tablet by mouth daily * ONDANSETRON 4 MG DISINTEGRATI* Take 1 tablet by mouth every * Patient not taking: Reported on 09/03/2018 METHOCARBAMOL 500 MG TABLET Take 1 tablet by mouth four t* Patient not taking: Reported on 09/03/2018 Problem List As Of Date 10/01/2018 Noted Resolved Acetabular labrum tear, right, initial encounte*INVALID FOR* Acquired hypothyroidism [E03.9] INVALID FOR* More... Hx of migraine headaches [Z86.69] INVALID FOR* More... Other instructions from your clinician: Avoid walking for exercise Pool exercise as tolerated - walking, gentle freestyle, deep water jog with belt. Avoid - breast stroke, scissor kick, treading water Begin JONNA/ Figure 4 stretch 10 - 30 count hold 3 reps 2-3 sets per day - can start with right heel resting next to or below left knee and progress to right heel resting above leftknee per tolerance Jesus stretch off edge or end of bed - 30 count hold 3 reps 2-3 sets per day Left knee to chest Begin Bike and elliptical for cardio - gradual progression - per PT guidance Encounter Status:Closed by CHELSEA ARORA PA-C on 10/01/18 [facility] PROGRESSon 10-01-2018 PROGRESS HNO ID: [id number] Author: Chelsea Arora (Pa) Service: ? Author Type: Physician Window Installer Type: Progress Notes Filed: 10/01/2018 9:30 AM Note Text: Post Op Follow Up Visit Demetrice Anderson follows up today 6 weeks s/p right hip arthroscopy Has been doing well since surgery. Reports no systemic symptoms or other concerns. PT is going well. PAIN EVALUATION 10/01/2018 Pain Level: 3 Pain Location: Hip-Right Description: Aching;Sore;Dull Duration Units: Months Frequency: Intermittent Intervention: Medication;Reposition ;Relaxation Focused Musculoskeletal exam: Incisions well healed Intact sensation distribution of the lateral femoral cutaneous nerve Trendelenburg Negative right, Negative left Right Left Hip Flex 110 degrees 110 degrees IR 30 degrees 10 degrees ER 60 degrees 60 degrees JONNA Positive motion Negative Anterior Impingement: Negative Negative Posterior Impingement: Negative Negative TRESA Negative Negative Tenderness with Palpation: Right Left Greater Troch Positive Mild Gluteus Medius Negative Negative Piriformis Negative Negative Resisted Strength out of 5 Right Left Hip ADduction 5 5 Hip ABduction 4+ 5 SLR 5 5 Isolated Iliopsoas 5 5 Impression: 6 weeks s/p right hip arthroscopy, Plan: Discussed Advance PT and activities per protocol. Precautions reinforced. Avoid walking for exercise Pool exercise as tolerated avoid - breast stroke, scissor kick, treading water JONNA and Jesus Stretch Bike and elliptical for cardio - gradual progression Follow-up: [address] Alma Arora, MS, AMOR [facility] CNOVon 09-03-2018 CNOV Office Visit (SPHTB) DEMETRICE ANDERSON ([id number]) 1970 F Date Time Provider Department 09/03/18 12:00 PM CHELSEA ARORA) SPHTB During your visit today, we recorded the following information about you: Chelsea Arora PA-C 09/03/2018 12:36 PM Signed Post Op Follow Up Visit Demetrice Anderson returns approximately 2 weeks s/p 1. Right hip arthroscopy. 2. Acetabuloplasty, [address]. 3. Labral repair, [address]. 4. Femoroplasty [address]. DOS: 08/19/18 Has been doing well since surgery. Denies systemic symptoms or other concerns. Denies calf pain. PAIN EVALUATION 09/03/2018 Pain Level: 3 Pain Location: Hip-Right Description: Aching;Sore;Dull Duration Units: Weeks Frequency: Intermittent Intervention: Reposition;Relaxation Medication Naproxen Weight bearing: partial using 2 crutches Hip Brace: discontinued yesterday Physical therapy 2-3 times per week Examination: Sutures removed without incident. Incisions healing well with no erythema, drainage, induration. There are no signs of infection. Wounds re-enforced with steri strips. Intact sensation in the distribution of the lateral femoral cutaneous nerve no discomfort with log roll Hip flexion to 90 degrees without pain External rotation at 90? to 40 degrees without pain Calves soft, non tender, no palpable cords 5/5 strength with resisted DF/EHL/PF bilaterally Impression: Approximately 2 weeks s/p right hip scope. No evidence of infection or DVT Plan: Discussed Intra operative and post operative course and expectations discussed. Arthroscopy pictures reviewed. Wound Care You can get your incisions wet in the shower, by allowing the water to run over them. Avoid scrubbing incisions. Do not soak or submerge your leg in a hot tub, bath tub or pool until you are at least 3 weeks post op and incisions well healed. Do not apply lotions or ointments to your incisions until you are 3 weeks post op and incisions are well healed. Medications: Finish Naproxen prescription. Then NSAID as needed for pain Pain medication - Over the Counter Tylenol (Acetaminophen) 325 mg or 500 mg - 1 up to 2 tablets 3-4 times per day Make sure to keep a track of how much tylenol you are taking Maximum dose of tylenol/acetaminophen from all sources in 24 hours is 4000 mg. Activities: Physical therapy - 1-2 times a week Continue to lay on your stomach for 1 to 2 hours per day to stretch the front of your hip. May do this in 5-10 minute increments. Start to flex your hip past 90 degrees at 2 weeks post op ? At 3 weeks post op no motion restrictions Avoid walking for exercise Upright stationary bike for motion only over the next 3-4 weeks Pool at 3 weeks post op IF incisions are completely healed: avoid breast stroke, treading water, scissor kick/ motion. Ok to begin deep water jog at 5-6 weeks post op Weight Bearing: Continue progression - use 2 crutches for at 2-3 days then 1 crutch for at least 3 day - full weight bearing as tolerated day 3. Then crutch as needed. Avoid limping 25 % body weight using 2 crutches for 1-2 days, then 50 % body weight using 2 crutches for 1-2 days, then 75% body weight using 1 crutch for 1-2 days 100 % body weight with 1 crutch x 1day If you are not more sore the next day you may progress to the next level. Otherwise remain at current level for 1-2 more days. Continue crutches until you have good leg control Return to work 09/10/18 with restrictions, letter provided Follow-up: 4 weeks Chelsea Arora MS, AMOR Arora PA-C 09/03/2018 12:32 PM Signed Wound Care You can get your incisions wet in the shower, by allowing the water to run over them. Avoid scrubbing incisions. Do not soak or submerge your leg in a hot tub, bath tub or pool until you are at least 3 weeks post op and incisions well healed. Do not apply lotions or ointments to your incisions until you are 3 weeks post op and incisions are well healed. Medications: Finish Naproxen prescription. Then NSAID as needed for pain Pain medication - Over the Counter Tylenol (Acetaminophen) 325 mg or 500 mg - 1 up to 2 tablets 3-4 times per day Make sure to keep a track of how much tylenol you are taking Maximum dose of tylenol/acetaminophen from all sources in 24 hours is 4000 mg. Activities: Physical therapy - once a week Continue to lay on your stomach for 1 to 2 hours per day to stretch the front of your hip. May do this in 5-10 minute increments. Start to flex your hip past 90 degrees at 2 weeks post op ? At 3 weeks post op no motion restrictions Avoid walking for exercise Upright stationary bike for motion only over the next 3-4 weeks Pool at 3 weeks post op IF incisions are completely healed: avoid breast stroke, treading water, scissor kick/ motion. Ok to begin deep water jog at 5-6 weeks post op Weight Bearing: Continue progression - use 2 crutches for at 2-3 days then 1 crutch for at least 3 day - full weight bearing as tolerated day 3. Then crutch as needed. Avoid limping 25 % body weight using 2 crutches for 1-2 days, then 50 % body weight using 2 crutches for 1-2 days, then 75% body weight using 1 crutch for 1-2 days 100 % body weight with 1 crutch x 1day If you are not more sore the next day you may progress to the next level. Otherwise remain at current level for 1-2 more days. Continue crutches until you have good leg control Follow-up: 4 weeks Referring Provider: CHELSEA ARORA) [[id number]] Allergies As of Date: 09/03/2018 (No Known Allergies) Date Reviewed: 09/03/2018 Reviewed by: Mike Jennings Ma - Fully Assessed Reason for Visit: Post-Op Visit [1236] Cmt: Right hip post op visit. Achiness every so often. Tightness in the am and while sleeping. Primary Visit Diagnosis:Acetabular labrum tear, right, initial encounter [S73.191A] Other Visit Diagnosis:Status post arthroscopy of hip [Z98.890] Order(s):PARKING FOR HANDICAPPED [[id number]] Order #: [id number] Prescriptions as of 09/03/2018 Sig: ASPIRIN 81 MG TABLET,DELAYED * Take 1 tablet by mouth daily * ACETAMINOPHEN 500 MG TABLET 1 tablet every 4 to 6 hours a* NAPROXEN 500 MG TABLET Take 1 tablet by mouth twice * ACETAMINOPHEN 325 MG CAPSULE Take by mouth. LEVOTHYROXINE 112 MCG TABLET Take 112 mcg by mouth daily b* LIOTHYRONINE 5 MCG TABLET Take 5 mcg by mouth once seema* TOPIRAMATE 50 MG TABLET Take 50 mg by mouth once seema* AMITRIPTYLINE 10 MG TABLET Take 10 mg by mouth daily at * ONDANSETRON 4 MG DISINTEGRATI* Take 1 tablet by mouth every * Patient not taking: Reported on 09/03/2018 METHOCARBAMOL 500 MG TABLET Take 1 tablet by mouth four t* Patient not taking: Reported on 09/03/2018 Medication notes this encounter ACETAMINOPHEN 500 MG TABLET >> Mike Jennings Ma 09/03/2018 12:00 PM >> MIKE JENNINGS MA Sep 03, 2018 12:00 PM Only taking on days she has PT sessions. Problem List As Of Date 09/03/2018 Noted Resolved Acetabular labrum tear, right, initial encounte*INVALID FOR* Acquired hypothyroidism [E03.9] INVALID FOR* More... Hx of migraine headaches [Z86.69] INVALID FOR* More... Other instructions from your clinician: Wound Care You can get your incisions wet in the shower, by allowing the water to run over them. Avoid scrubbing incisions. Do not soak or submerge your leg in a hot tub, bath tub or pool until you are at least 3 weeks post op and incisions well healed. Do not apply lotions or ointments to your incisions until you are 3 weeks post op and incisions are well healed. Medications: Finish Naproxen prescription. Then NSAID as needed for pain Pain medication - Over the Counter Tylenol (Acetaminophen) 325 mg or 500 mg - 1 up to 2 tablets 3-4 times per day Make sure to keep a track of how much tylenol you are taking Maximum dose of tylenol/acetaminophen from all sources in 24 hours is 4000 mg. Activities: Physical therapy - once a week Continue to lay on your stomach for 1 to 2 hours per day to stretch the front of your hip. May do this in 5-10 minute increments. Start to flex your hip past 90 degrees at 2 weeks post op ? At 3 weeks post op no motion restrictions Avoid walking for exercise Upright stationary bike for motion only over the next 3-4 weeks Pool at 3 weeks post op IF incisions are completely healed: avoid breast stroke, treading water, scissor kick/ motion. Ok to begin deep water jog at 5-6 weeks post op Weight Bearing: Continue progression - use 2 crutches for at 2-3 days then 1 crutch for at least 3 day - full weight bearing as tolerated day 3. Then crutch as needed. Avoid limping 25 % body weight using 2 crutches for 1-2 days, then 50 % body weight using 2 crutches for 1-2 days, then 75% body weight using 1 crutch for 1-2 days 100 % body weight with 1 crutch x 1day If you are not more sore the next day you may progress to the next level. Otherwise remain at current level for 1-2 more days. Continue crutches until you have good leg control Follow-up: 4 weeks Letter Text Encounter Status:Closed by CHELSEA ARORA PA-C on 09/03/[address] [facility] PROGRESSon 09-03-2018 PROGRESS HNO ID: [id number] Author: Chelsea Cevallos) Trudy Service: ? Author Type: Physician Window Installer Type: Progress Notes Filed: 09/03/2018 12:36 PM Note Text: Post Op Follow Up Visit Demetrice Anderson returns approximately 2 weeks s/p 1. Right hip arthroscopy. 2. Acetabuloplasty, 35798. 3. Labral repair, 98423. 4. Femoroplasty 10442. DOS: 08/19/18 Has been doing well since surgery. Denies systemic symptoms or other concerns. Denies calf pain. PAIN EVALUATION 09/03/2018 Pain Level: 3 Pain Location: Hip-Right Description: Aching;Sore;Dull Duration Units: Weeks Frequency: Intermittent Intervention: Reposition;Relaxation Medication Naproxen Weight bearing: partial using 2 crutches Hip Brace: discontinued yesterday Physical therapy 2-3 times per week Examination: Sutures removed without incident. Incisions healing well with no erythema, drainage, induration. There are no signs of infection. Wounds re-enforced with steri strips. Intact sensation in the distribution of the lateral femoral cutaneous nerve no discomfort with log roll Hip flexion to 90 degrees without pain External rotation at 90? to 40 degrees without pain Calves soft, non tender, no palpable cords 5/5 strength with resisted DF/EHL/PF bilaterally Impression: Approximately 2 weeks s/p right hip scope. No evidence of infection or DVT Plan: Discussed Intra operative and post operative course and expectations discussed. Arthroscopy pictures reviewed. Wound Care You can get your incisions wet in the shower, by allowing the water to run over them. Avoid scrubbing incisions. Do not soak or submerge your leg in a hot tub, bath tub or pool until you are at least 3 weeks post op and incisions well healed. Do not apply lotions or ointments to your incisions until you are 3 weeks post op and incisions are well healed. Medications: Finish Naproxen prescription. Then NSAID as needed for pain Pain medication - Over the Counter Tylenol (Acetaminophen) 325 mg or 500 mg - 1 up to 2 tablets 3-4 times per day Make sure to keep a track of how much tylenol you are taking Maximum dose of tylenol/acetaminophen from all sources in 24 hours is 4000 mg. Activities: Physical therapy - 1-2 times a week Continue to lay on your stomach for 1 to 2 hours per day to stretch the front of your hip. May do this in 5-10 minute increments. Start to flex your hip past 90 degrees at 2 weeks post op ? At 3 weeks post op no motion restrictions Avoid walking for exercise Upright stationary bike for motion only over the next 3-4 weeks Pool at 3 weeks post op IF incisions are completely healed: avoid breast stroke, treading water, scissor kick/ motion. Ok to begin deep water jog at 5-6 weeks post op Weight Bearing: Continue progression - use 2 crutches for at 2-3 days then 1 crutch for at least 3 day - full weight bearing as tolerated day 3. Then crutch as needed. Avoid limping 25 % body weight using 2 crutches for 1-2 days, then 50 % body weight using 2 crutches for 1-2 days, then 75% body weight using 1 crutch for 1-2 days 100 % body weight with 1 crutch x 1day If you are not more sore the next day you may progress to the next level. Otherwise remain at current level for 1-2 more days. Continue crutches until you have good leg control Return to work 09/10/18 with restrictions, letter provided Follow-up: 4 weeks Chelsea Arora MS, PALenora [facility] ANES Aj 08-19-2018 ANES POST HNO ID: [id number] Author: Cristiano Ford III Service: Anesthesiology Author Type: Anesthesiologist Type: Anesthesia PostOp Filed: 08/19/2018 1:28 PM Note Text: POST ANESTHESIA EVALUATION NOTE SERVICE DATE: 08/19/2018 SERVICE TIME: 1327 : 1970 Vitals: 08/19/18 0817 08/19/18 1110 08/19/18 1245 Temp: 36.9 ?C (98.5 ?F) 36.6 ?C (97.9 ?F) 36.7 ?C (98 ?F) 08/19/18 1125 08/19/18 1140 08/19/18 1155 08/19/18 1245 BP: (!) 85/48 80/53 (!) 89/49 104/68 08/19/18 1125 08/19/18 1140 08/19/18 1155 08/19/18 1245 Pulse: 77 88 83 77 08/19/18 1125 08/19/18 1140 08/19/18 1155 08/19/18 1245 Resp: 12 12 14 16 08/19/18 1125 08/19/18 1140 08/19/18 1155 08/19/18 1245 SpO2: 98% 97% 99% 100% Validated Vital Signs: Yes POST ANES STATUS: No apparent anesthetic complications. The patient is appropriately hydrated with stable respiratory and cardiovascular status. Patient has safe and adequate airway control. The patient has appropriate pain relief and no significant post operative nausea or vomiting. The patient has achieved baseline mental status. Intra-Operative Events: No Significant Anesthesia Events Further assessment by Anesthesia Service: None Other Remarks: SIGNATURE: Cristiano Ford MD PATIENT NAME: Demetrice Anderson DATE: August 19, 2018 TIME: 1:27 PM PAGER/CONTACT #: [phone] [facility] ANES PREOPon 08-19-2018 ANES PREOP HNO ID: [id number] Author: Cristiano Ford III Service: Anesthesiology Author Type: Anesthesiologist Type: Anesthesia PreOp Filed: 08/19/2018 8:36 AM Note Text: ANESTHESIOLOGY DAY OF SURGERY NOTE SERVICE DATE: 08/19/2018 SERVICE TIME: 835 : 1970 Procedure(s) (LRB): ARTHROSCOPY HIP W/ LABRAL REPAIR (Right) Surgeon(s): Gosia Guthrie (Fel) Estimated body mass index is 31.37 kg/m? as calculated from the following: Height as of 08/14/18: 154.9 cm (5' 1). Weight as of 08/14/18: 75.3 kg (166 lb). Most recent hematocrit and potassium results: No results found for this basename: HCT,HEMATOCRIT,K,POTA SSIUM ANES DOS/PREOP NOTE: Vitals: 08/19/18 0817 BP: 113/73 Pulse: 92 Resp: 20 Temp: 36.9 ?C (98.5 ?F) SpO2: 100% ACTIVE PROBLEM LIST Acetabular Labrum Tear, Right, Initial Encounter Acquired Hypothyroidism Hx of Migraine Headaches PAST MEDICAL HISTORY Diagnosis Date - Acetabular labrum tear 06/2018 RIGHT HIP - Hypothyroid PAST SURGICAL HISTORY Procedure Laterality Date - PAST SURGICAL HISTORY OF Right ~1988 KNEE SCOPE FOR REMOVAL LOOSE BODY - PAST SURGICAL HISTORY OF 2007 essure/uterine ablation - PAST SURGICAL HISTORY OF Right 2012 shoulder scope for RCT - PAST SURGICAL HISTORY OF Left 2015 bunionectomy FAMILY HISTORY Problem Relation Age of Onset - Anesthesia Problems No Family History - Blood Clots No Family History - Early No Family History Social History: Social History Tobacco Use - Smoking status: Never Smoker - Smokeless tobacco: Never Used Substance Use Topics - Alcohol use: Yes Comment: 0-2 x a month, a few glasses of wine - Drug use: Never No current facility-administered medications on file prior to encounter. Current Outpatient Medications on File Prior to Encounter: levothyroxine (SYNTHROID) 112 mcg tablet Take 112 mcg by mouth daily before breakfast. liothyronine (CYTOMEL) 5 mcg tablet Take 5 mcg by mouth once daily. topiramate (TOPAMAX) 50 mg tablet Take 50 mg by mouth once daily. amitriptyline (ELAVIL) 10 mg tablet Take 10 mg by mouth daily at bedtime. Current Facility-Administered Medications: lactated ringers infusion 5-30 mL/hr INTRAVENOUS CONTINUOUS Chelsea L (Dileep) Trudy Last Rate: 30 mL/hr at 08/19/18 0830 30 mL/hr at 08/19/18 0830 ceFAZolin iv piggyback 2 g in D5W (iso-osmotic) 100 mL (ANCEF) 2 g INTRAVENOUS Pre-Op Once Chelsea L (Pa) Banjac scopolamine 1 mg over 3 days 1 Patch (TRANSDERM-SCOP) 1 Patch TRANSDERMAL ONCE Cristiano Ford III 1 Patch at 08/19/18 0830 And scopolamine - VERIFY patch OTHER q 8 H Cristiano Ford III And [START ON 08/20/2018] scopolamine - REMOVE PATCH OTHER ONCE Cristiano Ford III Allergies: ALLERGIES No Known Allergies DOS EXAM: Adequate NPO status: Yes Anesthetic risks, benefits, alternatives, personnel and consent discussed: Yes Patient agrees to proceed: Yes Previous Anesthesia: No history of adverse event. Airway Assessment: MP 2; Neck ROM: Full ROM without neurologic symptoms; Airway Evaluation: No significant abnormalities Symptoms of Sleep Apnea: None Dentition: Teeth intact Additional Physical Exam: Lungs: Patient health status unchanged since recent history and physical. See history and physical for exam findings. Cardiac: Patient health status unchanged since recent history and physical. See history and physical for exam findings. Additional Pertinent Findings: N/A Blood Products: Not anticipated for this procedure. Anesthetic Plan: General, Standard ASA Monitors Pain Management Plan: Parenteral or Oral ASA Class: 2 Other Medical Problems: None Chronic Beta Chinyere medication administered within 24 hours: N/A I have interviewed and examined the patient. I have reviewed the medical record and/or the pre-anesthesia evaluation, pertinent labs, and test results. Significant changes in the patient's condition since the History and Physical, not otherwise documented in primary service progress notes: No This contains updated information obtained within 48 hours of Surgery/Procedure. SIGNATURE: Cristiano Ford MD PATIENT NAME: Demetrice Anderson DATE: August 19, 2018 TIME: 8:36 AM CSN: [id number] [facility] BRIEF OP NOTon 08-19-2018 BRIEF OP NOT HNO ID: [id number] Author: Germania Guthrie (Fel) Service: Orthopaedic Surgery Author Type: Fellow Type: Brief Op Note Filed: 08/19/2018 11:10 AM Note Text: BRIEF OP NOTE LOG ID: [id number] Surgery/Procedure Date: 08/19/2018 Incision/Procedure Start Time: 9:48 AM Incision Close/Procedure End Time: 11:03 AM Surgeon(s)/Procedural ist(s) and Window Installer(s): Surgeon(s) and Role: * Gosia Swain - Primary * Germania Guthrie (Fel) - Fellow Procedure(s): right hip arthroscopy, labral repair, acetabuloplasty, femoroplasty Anesthesia: General Findings: cam lesion, labral tear Estimated Blood Loss: 5 mls Specimens: None Complications: None Pre-Op/Pre-Procedure Diagnosis: marty ltear Post-Op/Post-Procedur e Diagnosis: Acetabular labrum tear, right, initial encounter [S73.191A], Hip pain [M25.559], Femoroacetabular impingement [M25.859], Acetabular labrum tear [S73.199A] SIGNATURE: Germania Guthrie MD PATIENT NAME: Demetrice Anderson DATE: August 19, 2018 TIME: 11:09 AM PAGER/CONTACT #: [facility] NURSING PROGon 03-18-2019 Protein mass conc HNO ID: [id number] Author: Venice (Rn) AIRAM Shields Service: Nursing Author Type: Registered Nurse Type: Nursing Progress Note Filed: 08/19/2018 8:20 AM Note Text: PRE OP LEARNING ASSESSMENT PROCEDURE/SURGERY: hip surgery READINESS TO LEARN COGNITIVE ABILITY: Alert and oriented MOTIVATION TO LEARN: Interested FAMILY SUPPORT: High - Very involved in pt care PATIENT LEARNS BEST BY: Written Instruction - Hand-outs Verbal Instruction FACTORS AFFECTING LEARNING: None PHYSICAL LIMITATIONS AFFECTING LEARNING: None Electronically Signed By: Venice Shields RN In Department: [facility] AMBULATORY SURGERY - ASCE [facility] OPERATIVE NOon 08-19-2018 OPERATIVE NO HNO ID: [id number] Author: Gosia Swain Service: Orthopaedic Surgery Author Type: Physician Type: Operative Report Filed: 08/22/2018 7:10 AM Note Text: [facility] - Operative Report DEMETRICE ANDERSON : 1970 AGE: 48. SEX: F PATIENT TYPE: A HOSP SVC: OROR LOCATION: [facility] ATTENDING PHYSICIAN: Gosia Swain MD CSN NUMBER: [id number] DATE OF SURGERY/PROCEDURE: 08/19/2018 INCISION/PROCEDURE START TIME: 9:48. INCISION CLOSE/PROCEDURE END TIME: 11 o'clock. PREOPERATIVE DIAGNOSIS: Right hip acetabular labral tear, S73.191A; right hip femoral acetabular impingement, M25.851; right pain in joint, pelvic region, thigh, M25.551. POSTOPERATIVE DIAGNOSIS: Right hip acetabular labral tear, S73.191A; right hip femoral acetabular impingement, M25.851; right pain in joint, pelvic region, thigh, M25.551. SURGEON: Gosia Swain MD BUSINESS DATABASE ANALYST: Germania Guthrie MD. SURGERY/PROCEDURE: 1.Right hip arthroscopy. 2.Acetabuloplasty, 62225. 3.Labral repair, 44357. 4.Femoroplasty 03358. ANESTHESIA: General. LOCATION: [facility] [place]. OPERATIVE INDICATIONS: This is a pleasant female with right hip complaints, not amenable to conservative management. Imaging findings and exam findings consistent with femoral acetabular impingement and labral tear. She had pain in the anterior impingement and JONNA position. We discussed the expectations, risks, benefits, and alternatives of surgical versus nonsurgical treatment options in her scenario. She voiced understanding of this and wished to proceed. DESCRIPTION OF PROCEDURE: The patient was brought to [facility] [place], [address] on 08/19/18 after marking the appropriate surgical extremity in the preoperative holding area. Brought in the operative suite, placed on the operating table, induced under general anesthesia. Placed distally in a well-padded perineal post. Both feet were secured in traction boots. The right upper extremity was placed across the chest. Care was taken to pad the ulnar nerve. Under fluoroscopic guidance and complete muscle relaxation, the right hip was distracted. The lateral aspect of the greater trochanter was prepped with Betadine. The vacuum suction seal was then removed from the joint with an 18-gauge spinal needle. The hip was then reduced and prepped and draped in the usual sterile fashion. After appropriate surgical time-out including all members of the surgical team, confirming the site and extremity, ensuring studio receptionist of 2 g IV Ancef, the hip was again distracted. A standard anterolateral and mid anterior portal were created. Exam of the hip joint revealed an anterosuperior labral tear with labral chondral separation from noon to 3 on the clock face. There was significant mild labral erythema along the rim and there was a marked amount of anterior superior synovitis. The deep anterior wall, dome, posterior wall, posterior labrum, and ligamentum teres were intact. At this point, interportal cut capsulotomy was performed. Labral takedown was performed in the area of the tear exposing 2 mm acetabular rim by 2 cm in length. We then used a 5.5 mm bur to perform the acetabuloplasty making a nice bleeding bony bed and going a 1.5 cm into the sub-spine region to accept three 1.8 mm Q-Fix anchors. Mattress suture configuration was employed and the labrum was secured down the acetabular bone in a very stable fashion. Repeat exam revealed no further changes. A light chondroplasty was performed smoothing out the articular cartilage flap. This defect measured 3 mm in depth by 1.5 cm in length. There was 20% thickness. The hip was reduced at 49 minutes. The head-neck junction was then identified distally after confirming a good labral seal. The loss of head-neck junction offset anteriorly was easily identifiable. A 5.5 mm bur was used to perform the femoroplasty using live fluoroscopic views and direct visualization to ensure adequate, but not over resection from the lateral epiphyseal vessels to the medial synovial fold. At this point, all loose bony debris was removed the joint. All excess fluid was removed. The hip joint was injected with 20 cc cocktail of 0.5% ropivacaine with 2 mg of Duramorph for postoperative analgesia. The arthroscopic instruments were then removed. The wound was then closed with interrupted 3-0 Prolene, followed by Steri-Strips and sterile dressing. The patient was then awakened from general anesthesia and taken to PACU in stable condition. COMPLICATIONS: None. SPECIMENS: None. FLUIDS: See anesthesia record. TRACTION TIME: Please note, the fellow performed portions of portal access, labral preparation and repair, acetabuloplasty, femoroplasty under my direct guidance. Gosia Swain MD JR:[id number] /[id number] cc: [facility] PT EDon 08-19-2018 PT ED HNO ID: [id number] Author: Venice MercadoRn) AIRAM Shields Service: Nursing Author Type: Registered Nurse Type: Patient Education Filed: 08/19/2018 1:02 PM Note Text: POST OP LEARNING RESPONSE INSTRUCTION PROVIDED TO: Patient and family member METHOD OF INSTRUCTION: Written instruction - handouts Verbal instruction PATIENT / FAMILY RESPONSE: Verbalizes understanding of: POST-OPERATIVE INSTRUCTIONS-Correct actions to take to reduce postoperative complications FOLLOW-UP PLAN: Patient instructed to call with any further issues SUPPLEMENTAL MATERIAL: None REFERRAL (RECOMMENDATION): None Electronically Signed By: Venice Shields RN In Department: [facility] AMBULATORY SURGERY - ASCE [facility] NURSING PROGon 08-15-2018 Protein mass conc HNO ID: [id number] Author: Melissa MercadoRn) AIRAM Pisano Service: ? Author Type: Registered Nurse Type: Nursing Progress Note Filed: 08/15/2018 8:25 AM Note Text: PACC Nurse Progress Note History AND Physical: PACC Visit Date: 08/14/18 Original HANDP Date: N/A ED visit Date: N/A Outside HANDP Scanned Date: N/A Labs Within Last 6 Months: N/A Imaging Within Last 12 Months: X-ray * See chart Cardiac Testing: N/A Last Menstrual Period: LMP Date: No LMP recorded. Despite ablation still has monthly period Postmenopausal >1yr: N/A, S/P Hysterectomy: No BMI Percentile (PEDS): N/A Risk Assessment: N/A Anesthesia Review: N/A Narrative: N/A Pre-op Considerations: N/A Chart Check: COMPLETED Melissa Pisano RN August 15, 2018 8:24 AM [facility] HISTORY PHYSICALon 9 HISTORY PHYSICAL HNO ID: [id number] Author: Melissa Cox (Pa) Service: ? Author Type: Physician Window Installer Type: HANDP Filed: 08/15/2018 12:09 AM Note Text: HISTORY AND PHYSICAL EXAMINATION SERVICE DATE: 08/14/2018 SERVICE TIME: 2:47 PM PRIMARY CARE PHYSICIAN: Lorrie Gunter DO REASON FOR VISIT: Demetrice Anderson is a 48 year old female who is scheduled for RIGHT HIP ARTHROSCOPY WITH LABRAL REPAIR at the request of Dr. Gosia Swain for consultation. My final recommendation will be communicated back to the requesting physician by way of shared medical record or letter. 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 Pt states pains never relieve despite conservative treatments. Pt states her pain is a 6/10 daily and on bad day get to 9/10. Lately has some locking of her right hip worse with standing. Pains affects her sleep and cannot find a good position. Pt met with an orthopod in her hometown and MRI confirmed right acetabular labral tear. Pt referred to Dr Swain, had exam confirming and options discussed. Patient agrees to proceed with right hip arthroscopy with labral repair. MRI results: IMPRESSION: 1. Complex tear/degenerative change of the inferior and posterior-inferior aspect labrum. Tiny tear anterior aspect labrum. 2. No acute osseous abnormality demonstrated. 3. Possible tiny herniation pit anterior aspect humerus head at peripheral margin of articular surface. Electronically signed by: Gabe Durham DO PAST MEDICAL HISTORY Diagnosis Date - Acetabular labrum tear 06/2018 RIGHT HIP - Hypothyroid PAST SURGICAL HISTORY Procedure Laterality Date - PAST SURGICAL HISTORY OF Right ~1988 KNEE SCOPE FOR REMOVAL LOOSE BODY - PAST SURGICAL HISTORY OF 2007 essure/uterine ablation - PAST SURGICAL HISTORY OF Right 2012 shoulder scope for RCT - PAST SURGICAL HISTORY OF Left 2015 bunionectomy FAMILY HISTORY Problem Relation Age of Onset - Anesthesia Problems No Family History - Blood Clots No Family History - Early No Family History SOCIAL HISTORY: Social History Socioeconomic History Marital status: Spouse name: Not on file Number of children: Not on file Years of education: Not on file Highest education level: Not on file Social Needs Financial resource strain: Not on file Food insecurity - worry: Not on file Food insecurity - inability: Not on file Transportation needs - medical: Not on file Transportation needs - non-medical: Not on file Occupational History Occupation: desk job Tobacco Use Smoking status: Never Smoker Smokeless tobacco: Never Used Substance and Sexual Activity Alcohol use: Yes Comment: 0-2 x a month, a few glasses of wine Drug use: Never Sexual activity: Not on file Other Topics Concerns: Not on file Social History Narrative Not on file Prior to Admission medications as of 08/14/18 1446 Medication Sig Last Dose Taking acetaminophen (TYLENOL) 325 mg cap Take by mouth. Taking Yes levothyroxine (SYNTHROID) 112 mcg tablet Take 112 mcg by mouth daily before breakfast. Taking Yes liothyronine (CYTOMEL) 5 mcg tablet Take 5 mcg by mouth once daily. Taking Yes topiramate (TOPAMAX) 50 mg tablet Take 50 mg by mouth once daily. Taking Yes amitriptyline (ELAVIL) 10 mg tablet Take 10 mg by mouth daily at bedtime. Taking Yes ALLERGIES No Known Allergies REVIEW OF SYSTEMS: PAIN ASSESSMENT: General: No weight loss, malaise or fevers. pleasant well appearing white female appears well, + trouble getting up from sitting position. + slight antalgic gait to right Neuro: Postive for Headaches on meds for migraine prevention and stable, Negative for Seizures Stroke-residual deficit Impaired Sensorium Respiratory: No history of current cough or dyspnea, or pneumonia in the past 6 weeks. No history of respiratory/pulmonary symptoms or problems. Cardiovascular: No history of HTN requiring medication, no history of angina, CHF, NE, cardiac surgery or stents. Denies rest pain, gangrene or revascularization/amp utation for PVD. No history of cardiovascular symptoms or problems. GI: No history of GI symptoms or problems. No history of esophageal varices, recent ascites, or ETOH greater than 2 drinks per day. : No history of dysuria, frequency or incontinence,, stones or chronic kidney disease STAFF TRAINER: Negative for abnormal vaginal bleeding, abnormal vaginal discharge. : Denies, No LMP recorded. Despite ablation still has monthly period +++Pt reminded she will need urine preg on AM of surgery+++ Endocrine: Hypothyroidism on meds and stable Denies DM or recent steroids Hematology: No history of bleeding or clotting disorder. Pt is not taking anti-coagulation or platelet medications. No history of hematological symptoms or problems. Oncology: No history of CA metastasis, chemo within 30 days, or radiotherapy within 90 days. Has not lost 10% of body wt in 6 months. No history of oncological symptoms or problems. Psych: No history of psychiatric symptoms or problems., TAkes Elavil for migraine prevention but help with pain Musculoskeletal: Joint pain right hip See HPI Skin: Negative for lesions, rash and itching. Objective PHYSICAL EXAM: VITALS: BP 115/63 Pulse 88 Temp (Src) 97.5 (Oral) Resp 16 Ht 5' 1 (1.55m) Wt 166 lb (75.3kg) SpO2 99% BMI 31.38 kg/(m2). General: Alert and oriented, No acute distress, Healthy appearance, white female appears well Skin: Normal color, no rash, no lesions., no open wounds several tattoos HEENT: EOM, pupils equal, round and reactive.nose patent, throat physio, No carotid bruits, Cardiovascular: Normal S1 AND S2, no rubs, murmurs . Pulse regular. Lungs: Normal breath sounds, no wheezes or crackles., No chest deformities or chest wall tenderness. Abdomen: Soft, non-tender, no rigidity., No masses or organomegaly. Extremities: + tender right medial groin, and posterior hip/gluteal region. See Dr Swain's notes. No deformity, no edema or tenderness, no joint swelling or clubbing. Neurological: Normal cognition and limited motor skills. Gait normal. No weakness or sensory deficit. Pulses: Radial pulses normal +2. Post tib pulses normal +2. Diagnostic tests reviewed for today's visit: No results found for: HBA1C Most recent labs Most recent imaging Assessment/Plan Hx of migraine headaches Assessment: takes preventative meds and stable Acquired hypothyroidism Assessment: Well controlled with medication and FU routinely with PCP METS: Climb a flight of stairs or walk up a hill (5.50 METs) Patient denies any chest pain or undue shortness of breath with the above physical activity. ASA Class: 2 ANESTHESIA FINDINGS: Intubation History: No history of difficult intubation Significant Anesthesia Considerations: None Airway Exam: General: Normal appearance Mallampati Score is CLASS II ULBT: Class I - Lower incisors can bite the upper lip above the chintan line Neck: Normal appearance and function, Distance from hyoid to mentum during neck extension is at least 3 finger breaths, Short neck Mouth: Normal tongue size and Mouth opening greater than 2 finger breaths Dentition: Intact Airway History: No abnormal airway history STOP BANG Score: Criteria: Snoring Age over 50 (50 year old) Score = 2 PLAN This patient is optimally prepared for surgery. CONSULTS: Patient does not require consults for optimization at this time. The Following Tests/Procedures Have Been Initiated: Labs not indicated per [facility] protocol, EKG not indicated per [facility] protocol REminded to practice and bring crutches and brace Planned Anesthetic: General Instructions Given to Patient: Patient given verbal and written preop instructions and voices comprehension and compliance. @ASSESSEND@ SIGNATURE: Melissa Cox PA-C PATIENT NAME: Demetrice Stahl Justin DATE: August 14, 2018 TIME: 2:47 PM PAGER/CONTACT #: [facility] Jamir 08-06-2018 [facility] Telephone ([facility]) DEMETRICE ANDERSON ([id number]) 1970 F Date Time Provider Department 08/06/18 GOSIA SWAIN [facility] During your visit today, we recorded the following information about you: Sharad Bains RN, RN 08/06/2018 1:42 PM Signed ----- Message from Joana [facility] sent at 08/05/2018 1:48 PM EST ----- Regarding: instructions Demetrice Meraz called to let you know that she has yet to receive her pre op instructions. She wondered if you have the incorrect email address [email or web address] as the best email to use for her instructions. The one on file in her demographics was incorrect. Sharad Bains RN, RN 08/06/2018 1:50 PM Signed ORTHO CARE COORDINATION QUICK NOTE Patient has been identified by name and date of : No Pre op instructions e-mailed as per below. AIRAM Catherine RN, RN 08/06/2018 2:56 PM Signed ORTHO CARE COORDINATION QUICK NOTE Patient has been identified by name and date of : Yes Patient e-mailed to advise that she got the resent pre op instructions and to update her preferred and correct e-mail as [email or web address] . Updated in Outbrain. Sharad Bains RN Allergies As of Date: 08/06/2018 (No Known Allergies) Date Reviewed: 07/30/2018 Reviewed by: Vanita Gonsalez Ma - Fully Assessed Reason for Visit: Follow Up [171] Electronic Communication [890] Prescriptions as of 08/06/2018 Sig: LEVOTHYROXINE 112 MCG TABLET Take 112 mcg by mouth daily b* LIOTHYRONINE 5 MCG TABLET Take 5 mcg by mouth once seema* TOPIRAMATE 50 MG TABLET Take 50 mg by mouth once seema* AMITRIPTYLINE 10 MG TABLET Take 10 mg by mouth daily at * Problem List As Of Date 08/06/2018 Noted Resolved Acetabular labrum tear, right, initial encounte*INVALID FOR* Encounter Status:Closed by SHARAD BAINS on 08/06/18 [facility] HOSPon 08-01-2018 HOSP Patient:Demetrice Anderson MRN: Height:5' 1(1.549 m) Weight:166 lb (75.297 kg) Outpatient Medications as of 08/19/18: aspirin, enteric coated (ADULT LOW DOSE ASPIRIN) 81 mg EC tablet ketorolac (TORADOL) 10 mg tablet acetaminophen (TYLENOL) 500 mg tablet naproxen (NAPROSYN) 500 mg tablet ondansetron orally disintegrating (ZOFRAN ODT) 4 mg disintegrating tablet methocarbamol (ROBAXIN) 500 mg tablet oxyCODONE IR (ROXICODONE) 5 mg immediate release tablet acetaminophen (TYLENOL) 325 mg cap levothyroxine (SYNTHROID) 112 mcg tablet liothyronine (CYTOMEL) 5 mcg tablet topiramate (TOPAMAX) 50 mg tablet amitriptyline (ELAVIL) 10 mg tablet Admission/Clinic Administered Medications as of 08/19/18: lactated ringers infusion ceFAZolin iv piggyback 2 g in D5W (iso-osmotic) 100 mL (ANCEF) scopolamine 1 mg over 3 days 1 Patch (TRANSDERM-SCOP) scopolamine - VERIFY patch scopolamine - REMOVE PATCH Problem List: Acetabular labrum tear, right, initial encounter [S73.191A] Acquired hypothyroidism [E03.9] Hx of migraine headaches [Z86.69] Allergies: No Known Allergies Date Verified:08/19/18 Lab Values No results within the last 30 days for the following basenames: K,HCT Progress Notes ([facility]): Sharad Bains RN, RN 08/06/2018 1:42 PM Signed ----- Message from Neema sent at 08/05/2018 1:48 PM EST ----- Regarding: instructions Demetrice Meraz called to let you know that she has yet to receive her pre op instructions. She wondered if you have the incorrect email address Demetrice provided [email or web address] as the best email to use for her instructions. The one on file in her demographics was incorrect. Sharad Bains RN, RN 08/06/2018 1:50 PM Signed ORTHO CARE COORDINATION QUICK NOTE Patient has been identified by name and date of : No Pre op instructions e-mailed as per below. AIRAM Catherine, RN, RN 08/06/2018 2:56 PM Signed ORTHO CARE COORDINATION QUICK NOTE Patient has been identified by name and date of : Yes Patient e-mailed to advise that she got the resent pre op instructions and to update her preferred and correct e-mail as . Updated in Epic. Sharad Bains RN Progress Notes ([facility]): Demetrice Wall 07/31/2018 10:43 AM Signed Patient calling to schedule surgery... Sharad Bains RN, RN 07/31/2018 11:14 AM Signed ORTHO CARE COORDINATION QUICK NOTE Patient has been identified by name and date of : No Right hip scope. Returned call to patient. VM left offering the following surgery dates: 08/19, 08/22, 09/05, 09/09, 09/12, 09/16, 09/19 or 09/23. Pre op instructions will be sent via e-mail address on file. PAT at [place]. AIRAM Catherine RN, RN 07/31/2018 3:45 PM Signed ----- Message from Helen Salinas Pss sent at 07/31/2018 2:39 PM EST ----- Patient left a message about surgery scheduled for 08/19/18. She would like to be on a wait list for any cancellations for an earlier date. She is requesting if she is able to have therapy where she lives in [place]. She can be reached at work until 4 pm at [phone] cell is [phone] Thanks Janice Bains RN, RN 07/31/2018 4:11 PM Signed ORTHO CARE COORDINATION QUICK NOTE Patient has been identified by name and date of : Yes Returned call to pt. Confirmed DOS of 08/19/18. Advised she can do PT at location of her choice. Pre op instructions will be sent via e-mail. She will schedule PAT at [place]. AIRAM Catherine RN, RN 08/01/2018 12:26 PM Signed ORTHO CARE COORDINATION QUICK NOTE Patient has been identified by name and date of : No Episode/ orders created and routed. Pre op instructions sent via e-mail. AIRAM Catherine, RN, RN 08/07/2018 11:29 AM Signed ORTHO CARE COORDINATION QUICK NOTE Patient has been identified by name and date of : No Patient e-mailed to request order for crutches for insurance reimbursement. Order created and routed. She will let us know how she wants the order. [facility] DEMETRICE ANDERSON ([id number]) 1970 F Date Time Provider Department 07/30/18 9:00 AM GOSIA SWAIN [facility] During your visit today, we recorded the following information about you: Weight Height 73.9 kg 1.549 m Gosia Swain MD 07/30/2018 12:36 PM Signed DEPARTMENT OF ORTHOPAEDICS Consultation as a request of Dr. Braun Chief Complaint: Right hip pain HISTORY OF PRESENT ILLNESS: This is a pleasant 48 year old female, who presents today with a chief complaint of right hip pain. Injury/ Trauma: Denies. States she did fall on the ice in April 2018 however she did not start experiencing hip pain right away. Her pain started around June 2018 so she is not sure whether it was a delayed response from the fall. Otherwise there was no mechanism in June to start her symptoms. Pain has progressively worsened over the last few months. PAIN EVALUATION 07/30/2018 Pain Score: 7 Description: Aching;Sharp;Stabbing right hip Duration Amount of Time: - since 06/2018 Frequency: /Infant Intervention: Medication;Reposition ;Relaxation;Heat Pain location: c-sign Duration of pain/ symptoms: 2 months Frequency: constant Intensity: moderate Quality: sharp She Reports nocturnal pain. She denies numbness, tingling, or electric shocks. She reports popping and locking. 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 No past surgical history on file. Current Outpatient Prescriptions: levothyroxine (SYNTHROID) 112 mcg tablet Take 112 mcg by mouth daily before breakfast. Disp: Rfl: liothyronine (CYTOMEL) 5 mcg tablet Take 5 mcg by mouth once daily. Disp: Rfl: topiramate (TOPAMAX) 50 mg tablet Take 50 mg by mouth once daily. Disp: Rfl: amitriptyline (ELAVIL) 10 mg tablet Take 10 mg by mouth daily at bedtime. Disp: Rfl: No current facility-administered medications for this visit. ALLERGIES No Known Allergies No family history on file. Social History Substance Use Topics - Smoking status: Never Smoker - Smokeless tobacco: Never Used - Alcohol use Not on file REVIEW OF SYSTEMS: GENERAL: No weight loss, malaise or fevers HEENT: Negative for frequent or significant headaches, No changes in hearing or vision, no nose bleeds or other nasal problems NECK: Negative for lumps, goiter, pain and significant neck swelling RESPIRATORY: Negative for cough, hemoptysis, wheezing, COPD, dyspnea or shortness of breath CARDIOVASCULAR: Negative for chest pain, leg swelling, hypertension, CHF or palpitations GI: No nausea, vomiting, or diarrhea : Negative, No history of dysuria, frequency or incontinence STAFF TRAINER: Negative for abnormal vaginal bleeding, abnormal vaginal discharge MUSCULOSKELETAL: Negative for joint pain or swelling, back pain or muscle pain SKIN: Negative for lesions, rash, and itching HEMATOLOGY/LYMPHOLOGY : Negative for prolonged bleeding, bruising easily or swollen nodes ENDOCRINE: Negative for cold or heat intolerance, polyuria, polydipsia and goiter RADIOGRAPHS: right AP pelvis, Jessica lateral and false view dated today revealed no acute processes, fractures, or dislocations. Osseous and soft tissue structures within normal limits. Tonnis grade 0. X-Rays Reviewed and discussed. OTHER STUDIES: MRI reveals labral tear PHYSICAL EXAM: Ht 5' 1 (1.55m) Wt 163 lb (73.9kg) BMI 30.81 kg/(m2). General: Appears stated age, well built, in no apparent distress. Psychiatric: Mood and affect appropriate. Alert and oriented x 3 without evidence of abnormal respiratory effort. Musculoskeletal Exam: Gait normal, Posture: erect and normal. Exam: Right Left Single Leg Trendelenburg Negative Negative Hip flexion 100 100 IR 10 10 ER 60 60 Anterior impingement Positive (pain) negative Dynamic labral stress Positive (pain) negative JONNA positive (pain) negative Posterior Impingement Positive (anterior pain) negative TRESA negative negative Strength Right Left Supine HF 5-/5 5/5 Upright HF 5-/5 5/5 Adduction 5-/5 5/5 Abduction 5-/5 5/5 Tenderness with Palpation: Right Left Greater Troch Positive Positive Gluteus Medius Negative Negative Piriformis Negative Negative PROCEDURE: Not applicable IMPRESSION: 1. right Hip Labral Tear. PLAN: 1. Medication: Continue current medications. 2. Test(s)/Imaging/Refer ral(s): None. 3. Intervention: Following a disussion of nonoperative and operative treatment options, the risks and benefits of both, expected outcome and rehabilitation the patient elected for surgical intervention. Arthroscopic labral debridement vs repair, Arthroscopic cam impingement femoroplasty and Arthroscopic pincer impingement acetabuloplasty will be scheduled following necessary clearance at the patient's convenience. 4. Follow-up: Following above. Gosia Swain MD Sports Medicine/Orthopaedic Surgery Referring Provider: SHERINE BRAUN [[id number]] Allergies As of Date: 07/30/2018 (No Known Allergies) Date Reviewed: 07/30/2018 Reviewed by: Vanita Gonsalez Ma - Fully Assessed Reason for Visit: Pain [78] Cmt: RIGHT HIP CONSULT Primary Visit Diagnosis:Acetabular labrum tear, right, initial encounter [S73.191A] Prescriptions as of 07/30/2018 Sig: LEVOTHYROXINE 112 MCG TABLET Take 112 mcg by mouth daily b* LIOTHYRONINE 5 MCG TABLET Take 5 mcg by mouth once seema* TOPIRAMATE 50 MG TABLET Take 50 mg by mouth once seema* AMITRIPTYLINE 10 MG TABLET Take 10 mg by mouth daily at * Problem List As Of Date 07/30/2018 Noted Resolved Acetabular labrum tear, right, initial encounte*INVALID FOR* Follow-up and Disposition History Recorded Letter Text MD Chelsea Underwood PA-C [facility] / [address] [place] [address] Office: [phone] Hip Arthroscopy Hip arthroscopy is a sterile procedure that allows direct visualization of the hip joint to diagnose and treat problems. The word arthroscopy comes from the Romansh ?arthro? (joint) and ?skopein? (to look), meaning ?to look within the joint?. Dr. Swain makes a small incision in the skin and inserts a pencil-sized instrument that contains a small lens and lighting system to magnify and illuminate the structures inside the hip joint. The television camera attached to the arthroscope displays the image of the joint on a television screen. Why is arthroscopy necessary? Diagnosing joint injuries and disease begins with a thorough medical history, physical examination, and usually x-rays and/or imaging (CT scan/MRI). The arthroscope allows Dr. Swain to make a final diagnosis and treat it. Femoroacetabular impingement (GALI), labral tear, or cartilage injury is the most common reasons for hip arthroscopy. What are the possible complications? The risk of complications after hip arthroscopy is extremely low. However, with any arthroscopic surgery there are risks including, but not limited to: -bleeding -infection -nerve and blood vessel injuries, or blood clot -joint stiffness -a build-up of fluid in the hip joint -cartilage damage -anesthetic complications What are the advantages? Hip arthroscopy is performed as day surgery. Compared to some open surgery (large incision), arthroscopy provides: -improved cosmesis -shorter recovery time, accelerated rehabilitation -fewer complications -less pain -less damage to soft tissues at the incision site What should I do before hip surgery? Dr. Swain may ask you to see your primary care physician or the anesthesia clinic for pre-operative surgical clearance. Depending on your age and medical condition, you may be asked to get and ECG, chest x-ray, and other laboratory tests a few days or weeks prior to your scheduled surgery date. Dr. Swain will ask you not to eat or drink anything for 12 hours before surgery. Many medications you can take on the day of surgery, but you should not take any aspirin or anti-inflammatory medications (e.g. Advil, Motrin, Aleve, Ibuprofen, Naproxen) for 7 days before your surgery as they can increase bleeding. You must arrange for someone to pick you up after surgery and stay with you for the first 24 hours after surgery. What happens on the day of surgery? On the day of arthroscopy you will need to: -wear loose, comfortable clothing -remove all jewelry -go to bathroom just before surgery Before surgery, you will be in the ?pre-operative holding area? where the nurse or anesthesiologist will start an intravenous line, or ?IV? . Your anesthesiologist will meet with you to go over the options for anesthesia which include local anesthetic with sedation and general anesthesia. How is arthroscopy performed? The length of time for hip arthroscopy varies, depending on what is done during the surgery. Generally, it takes 60-120 minutes for the surgery. Two to five small incisions (approximately 3 millimeters in length) are made around the hip to insert the arthroscopy camera and necessary instruments. Attached to this is a camera and light source which is also attached to a TV monitor. Fluid (sterile saline) is used to irrigate and fill the joint space for better viewing using gravity. Pictures and video may be taken and saved for later reference. Dr. Swain will inspect the entire joint first. He may use a motorized ?shaving? instrument to clean up torn cartilage or excessive growth of tissues, and bone spurs. What happens immediately after surgery? After your arthroscopy you will go to the recovery room. You will remain there until the effects of your anesthetic have begun to wear off. You will remain in the recovery room until you can eat, drink, and urinate without difficulty. Specially trained nurses will monitor your progress and give you verbal and written discharge instructions. You will not be able to drive home after surgery and we recommend that someone stay with you overnight. Most patients will be able to walk with crutches immediately after surgery with partial weightbearing. Brace wear after the procedure will depend on the type of surgery you have. You may have a ?cooling device? that you may wear intermittently for the first few days after surgery as well. When can I drive? Driving recommendations will vary with the specific surgery. You should not drive while you are using narcotic medications. If your surgery is on the left side, you may be able to drive in a few days if you are not wearing a brace, or once the brace is discontinued (for automatic transmission). If your surgery is on the right side (or manual transmission), it may be 2-3 weeks before you are able to drive. This may be need to be tailored for each individual. When can I return to normal activities? Most patients return to desk work with in 2-4 weeks and school within a week. If your job requires physical activity, it may take much longer (weeks or months) depending on the nature of your job and type of surgery. It can take several months for your hip to ?completely? recover. In general, at 6 months we expect you to feel 80% of normal. The length of time for return to sport will greatly vary between each individual. Your physical therapy regimen and activity modifications will thus be tailored accordingly and reviewed with you at each postoperative visit. A rehabilitation plan will be discussed with you 1-5 days after surgery and expected recovery timelines will be made more specific, depending on what exactly was seen and done during surgery. The sutures will usually be removed 12-16 days after surgery. You may shower on the 3rd day after surgery, but you must keep incisions clean and DRY until the sutures are removed. You should not take baths or ?hot tub? until 3 weeks after surgery as long as your incisions are well healed. Encounter Status:Closed by GOSIA SWAIN MD on 07/30/[address] [facility] PROGRESSon 07-30-2018 PROGRESS HNO ID: [id number] Author: Gosia Swain Service: (none) Author Type: Physician Type: Progress Notes Filed: 07/30/2018 12:36 PM Note Text: DEPARTMENT OF ORTHOPAEDICS Consultation as a request of Dr. Braun Chief Complaint: Right hip pain HISTORY OF PRESENT ILLNESS: This is a pleasant 48 year old female, who presents today with a chief complaint of right hip pain. Injury/ Trauma: Denies. States she did fall on the ice in April 2018 however she did not start experiencing hip pain right away. Her pain started around June 2018 so she is not sure whether it was a delayed response from the fall. Otherwise there was no mechanism in June to start her symptoms. Pain has progressively worsened over the last few months. PAIN EVALUATION 07/30/2018 Pain Score: 7 Description: Aching;Sharp;Stabbing right hip Duration Amount of Time: - since 06/2018 Frequency: /Infant Intervention: Medication;Reposition ;Relaxation;Heat Pain location: c-sign Duration of pain/ symptoms: 2 months Frequency: constant Intensity: moderate Quality: sharp She Reports nocturnal pain. She denies numbness, tingling, or electric shocks. She reports popping and locking. 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 No past surgical history on file. Current Outpatient Prescriptions: levothyroxine (SYNTHROID) 112 mcg tablet Take 112 mcg by mouth daily before breakfast. Disp: Rfl: liothyronine (CYTOMEL) 5 mcg tablet Take 5 mcg by mouth once daily. Disp: Rfl: topiramate (TOPAMAX) 50 mg tablet Take 50 mg by mouth once daily. Disp: Rfl: amitriptyline (ELAVIL) 10 mg tablet Take 10 mg by mouth daily at bedtime. Disp: Rfl: No current facility-administered medications for this visit. ALLERGIES No Known Allergies No family history on file. Social History Substance Use Topics - Smoking status: Never Smoker - Smokeless tobacco: Never Used - Alcohol use Not on file REVIEW OF SYSTEMS: GENERAL: No weight loss, malaise or fevers HEENT: Negative for frequent or significant headaches, No changes in hearing or vision, no nose bleeds or other nasal problems NECK: Negative for lumps, goiter, pain and significant neck swelling RESPIRATORY: Negative for cough, hemoptysis, wheezing, COPD, dyspnea or shortness of breath CARDIOVASCULAR: Negative for chest pain, leg swelling, hypertension, CHF or palpitations GI: No nausea, vomiting, or diarrhea : Negative, No history of dysuria, frequency or incontinence STAFF TRAINER: Negative for abnormal vaginal bleeding, abnormal vaginal discharge MUSCULOSKELETAL: Negative for joint pain or swelling, back pain or muscle pain SKIN: Negative for lesions, rash, and itching HEMATOLOGY/LYMPHOLOGY : Negative for prolonged bleeding, bruising easily or swollen nodes ENDOCRINE: Negative for cold or heat intolerance, polyuria, polydipsia and goiter RADIOGRAPHS: right AP pelvis, Jessica lateral and false view dated today revealed no acute processes, fractures, or dislocations. Osseous and soft tissue structures within normal limits. Tonnis grade 0. X-Rays Reviewed and discussed. OTHER STUDIES: MRI reveals labral tear PHYSICAL EXAM: Ht 5' 1 (1.55m) Wt 163 lb (73.9kg) BMI 30.81 kg/(m2). General: Appears stated age, well built, in no apparent distress. Psychiatric: Mood and affect appropriate. Alert and oriented x 3 without evidence of abnormal respiratory effort. Musculoskeletal Exam: Gait normal, Posture: erect and normal. Exam: Right Left Single Leg Trendelenburg Negative Negative Hip flexion 100 100 IR 10 10 ER 60 60 Anterior impingement Positive (pain) negative Dynamic labral stress Positive (pain) negative JONNA positive (pain) negative Posterior Impingement Positive (anterior pain) negative TRESA negative negative Strength Right Left Supine HF 5-/5 5/5 Upright HF 5-/5 5/5 Adduction 5-/5 5/5 Abduction 5-/5 5/5 Tenderness with Palpation: Right Left Greater Troch Positive Positive Gluteus Medius Negative Negative Piriformis Negative Negative PROCEDURE: Not applicable IMPRESSION: 1. right Hip Labral Tear. PLAN: 1. Medication: Continue current medications. 2. Test(s)/Imaging/Refer ral(s): None. 3. Intervention: Following a disussion of nonoperative and operative treatment options, the risks and benefits of both, expected outcome and rehabilitation the patient elected for surgical intervention. Arthroscopic labral debridement vs repair, Arthroscopic cam impingement femoroplasty and Arthroscopic pincer impingement acetabuloplasty will be scheduled following necessary clearance at the patient's convenience. 4. Follow-up: Following above. Gosia Swain MD Sports Medicine/Orthopaedic Surgery [facility] PROGRESS HNO ID: [id number] Author: Demetrice (Myra Jose Service: (none) Author Type: Retail Bakery Manager Type: Progress Notes Filed: 07/30/2018 8:53 AM Note Text: Radiology Service Progress Note PATIENT NAME: Demetrice Anderson DATE OF SERVICE: July 30, 2018 TIME: 8:52 AM PATIENT IDENTITY VERIFICATION COMPLETED USING TWO (2) METHODS: Patient confirmed name verbally and Date of . PATIENT GENDER DATA: Female. status: : No status: NO. PATIENT RELEVANT IMPLANT DATA REVIEWED: Not Applicable RADIOLOGY DEPARTMENT: General X-ray: Exam(s) Completed: Pelvis X-Ray: Pelvis with Hip Right PERIPHERAL IV DATA: Not applicable SIGNED BY: RT Eyal July 30, 2018 8:52 AM [facility] XR HIP 3V PELV+ AP/LAT RTon 07-30-2018 XR HIP 3V PELV+ AP/LAT RT * * *Final Report* * * DATE OF EXAM: Jul 30 2018 8:52AM SHX [id number] - XR HIP 3V PELV+ AP/LAT RT / PROCEDURE REASON: Pain * * * * Physician Interpretation * * * * EXAMINATION: XR HIP 3V PELV+ AP/LAT RT HISTORY: Right hip/pelvis pt states known laral tear Pain . TECHNIQUE: XR HIP 3V PELV+ AP/LAT RT Laterality: RIGHT Number of different views (projections): 3 M: XB_1 COMPARISON: RESULT: Surgical occlusion material in the pelvis. Both hip joint spaces are maintained. Minimal osseous prominence at the right femoral head neck junction. Maintained sacroiliac joints and pubic symphysis. No acute fracture or dislocation. There are no bony erosions. IMPRESSION: Maintained right hip joint. Medical Device: PSCB Transcribe Date/Time: Jul 30 2018 12:20P Dictated by : PHOENIX LINO MD This examination was interpreted and the report reviewed and electronically signed by: PHOENIX LINO MD on Jul 30 2018 12:21PM EST [id number] N [facility] MR- JNT LOW EXT W/CO NT-RT IMPORTon 07-11-2018 MR- JNT LOW EXT W/CONT-RT IMPORT Images were obtained outside of [facility] [id number] N [facility] SR-CR.HIPAINJR INJECTION FOR HIP ARTHRO-RT IMPORTon 07-11-2018 SR-CR.HIPAINJR INJECTION FOR HIP ARTHRO-RT IMPORT Images were obtained outside of [facility] [id number] N [facility] SR-CR.HIPAR HIP-ARTHROGRAM R IGHT IMPORTon 07-11-2018 SR-CR.HIPAR HIP-ARTHROGRAM RIGHT IMPORT Images were obtained outside of [facility] [id number] N [facility] Encounters Encounter Date Encounter Type Care Provider Facility Start: 01-21-2025 ambulatory Luz Marina Puckett Facility:[facility] Start: 05-29-2024 ambulatory Health Risk Assessment Facility:[facility] Start: 08-19-2018 End: 08-19-2018 Patient encounter procedure [facility] Payers Date Payer Category Payer Unknown [id number] 2024 Self-pay Unknown [id number] Summary Purpose Family History No Family History Records FoundNo Family History Records FoundNo Family History Records FoundNo Family History Records FoundNo Family History Records Found Advance Directives No Advanced Directives Records FoundNo Advanced Directives Records FoundNo Advanced Directives Records FoundNo Advanced Directives Records FoundNo Advanced Directives Records Found Additional Source Comments INFORMATION SOURCE (unrecogn ized section and content) DATE CREATED AUTHOR 08/22/2018 [facility] DATE CREATED AUTHOR AUTHOR'S ORGANIZ ATION 02/01/2019 [facility] DATE CREATED AUTHOR AUTHOR'S ORGANIZ ATION 03/23/2021 [facility] DATE CREATED AUTHOR AUTHOR'S ORGANIZ ATION 05/31/2021 [facility] ([place]) DATE CREATED AUTHOR AUTHOR'S ORGANIZ ATION 01/20/2025 [facility] FOR RECORDS PERTAINING TO PATIENTS WHO ARE OR HAVE BEEN ENROLLED IN A CHEMICAL DEPENDENCY/SUBSTANCEABUSE PROGRAM, SOME INFORMATION MAY BE OMITTED. This clinical summary was aggregated from multiple sources. Caution should be exercised in using it in the provision of clinical care. This summary normalizes information from multiple sources, and as a consequence, information in this document may materially change the coding, format and clinical context of patient data. In addition, data may be omitted in some cases. CLINICAL DECISIONS SHOULD BE BASED ON THE PRIMARY CLINICAL RECORDS. [employer] [facility]. provides no warranty or guarantee of the accuracy or completeness of information in this document.
== END | disposition home or self-care (01) ==
LOC: OPBI 14:27
PROVIDERS: PCP Nurse Practitioner Family; Referring Provider Nurse Practitioner Family; Visit Provider Nurse Practitioner Family
DX: Z12.31 Encounter for screening mammogram for malignant neoplasm of breast (principal)
CPT/HCPCS: 77063; 77067

== ENCOUNTER → 2025-05-13 | Outpatient (CLI) | payer OTHER, SELFPAY ==
[2025-05-13 17:44] LABS: Hematocrit 38.1 % (37-47); Hemoglobin 12.2 g/dL (12.0-15.0); Immature Granulocytes Count 0.020 X10^3/uL (0.0-0.0); Mean Corp Hgb Conc 32.0 g/dL (32-36); Mean Corpuscular Volume 89.2 fL (81-99); Mean Platelet Vol. 11.5 fl (6.2-12.0); NRBC Flagged by Analyzer 0 % (0-5); Platelet Count 313 K/mm3 (150-450); RBC Distribution Width CV 13.7 % (11.6-14.6); RBC Distribution Width SD 44.8 fl (35.1-43.9); Red Blood Count 4.27 M/mm3 (4.2-5.4); White Blood Count 8.7 K/mm3 (4.4-11.0)
[2025-05-13 18:19] LABS: AST(SGOT) 26 U/L (<=31); Alanine Aminotransfer ALT/SGPT 30 U/L (<=34); Albumin, Serum 4.2 g/dL (3.5-5.0); Alkaline Phosphatase 49 U/L (35-104); Anion Gap 8 (5-15); BUN 8 mg/dL (4-19); BUN/Creat Ratio 11.2 RATIO (10-20); Calcium,Total 9.1 mg/dL (7.6-11.0); Carbon Dioxide 28.8 mmol/L (21.0-32.0); Chloride 101 mmol/L (98-108); Cholesterol 190 mg/dL (<=200); Globulin 2.6 g/dL (2.2-4.2); Glucose 92 mg/dL (70-99); Low Density Lipoprotein Calc. 109 mg/dL; Potassium 4.2 mmol/L (3.3-5.1); Triglycerides 128 mg/dL; Very Low Density Lipoprotein 26 mg/dL (5-40); cholesterol:hdl ratio screen 3.24
== END | disposition home or self-care (01) ==
LOC: BFHLAB 15:39
PROVIDERS: PCP Nurse Practitioner Family; Visit Provider Nurse Practitioner Family
DX: Z00.01 Encounter for general adult medical examination with abnormal findings (principal); E03.9 Hypothyroidism, unspecified
CPT/HCPCS: 36415; 80053; 80061; 84439; 84443; 85025